=== PATIENT | female | born 1940 | race Caucasian/White ===

== ENCOUNTER 2020-10-03 14:56 | Inpatient (IN) | payer MEDICARE, SELFPAY ==
[2020-10-03] VITALS (16 sets, daily range): BP systolic 115–167; BP diastolic 49–72; PULSE 60–76; RESP 12–30; TEMP 36.7–37; O2SAT 94–100; BMI 33.2
--- NOTE | 2020-10-03 | DI.CT.S_ITS ---
PROCEDURE: CT CHEST WO CON INDICATIONS: Cough r/o PNA TECHNIQUE: Noncontrast 5 mm thick sections acquired from the pulmonary apices to the posterior costophrenic angles. 1 mm lung window, 5 mm thick coronal and sagittal and 7 mm axial MIP reformats were then acquired. For radiation dose reduction, the following was used: automated exposure control, adjustment of mA and/or kV according to patient size. COMPARISON: [facility], CT, CHEST W/O CONTRAST, 10/12/2010, 8:32. [facility], CT, CT KIDNEY URETER BLADDER (KUB), 10/03/2020, 17:22. FINDINGS: Image quality: Excellent. Lungs and pleura: No acute air space opacities. Very mild chronic interstitial fibrosis. 4 mm noncalcified subpleural pulmonary nodule, left upper lobe, image 82/3. This is not present on the previous study. No pleural effusions or pneumothorax. Central and peripheral airways are patent and normal in caliber. Mediastinum: Heart size is normal. No pericardial effusion. Advanced coronary artery calcifications. 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 Probable hemodynamically significant right renal artery stenosis. No mediastinal adenopathy by size criteria. Thoracic aorta and central pulmonary arteries are normal in size. Esophagus is normal in caliber. No hiatal hernia. Bones and chest wall: No suspicious bony lesions. No vertebral body compression fractures. No axillary or supraclavicular adenopathy by size criteria. Thyroid gland is somewhat heterogeneous . Abdomen: Polycystic kidneys IMPRESSION: 1. Very mild chronic interstitial pulmonary fibrosis. 2. 4 mm pulmonary nodule, left upper lobe. 3. Advanced coronary artery disease. 5. Polycystic kidneys. 6. 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 In the correct clinical setting, this can correlate with chronic mesenteric ischemia. 7. Probable hemodynamically significant calcified right renal artery stenosis. Comment: Consider noncontrast CT of the chest in 12 months to follow-up the pulmonary nodule. Dictated by: Janes Perkins M.D. on 10/03/2020 at 19:03 Approved by: Janes Perkins M.D. on 10/03/2020 at 19:10
--- NOTE | 2020-10-03 15:16 | ED.SEPSIS ---
HPI - Sepsis General Chief Complaint: Urogenital-Female Mode of arrival: EMS Source: patient Limitations: altered mental status Evaluation Sepsis Screen: No Definite Risk Sepsis Infection Criteria Present: Documented Infection Narrative: Patient is a 80-year-old female with history of recurrent UTIs hospitalized twice at [facility] in August. She was previously living independently in till she was hospitalized a through the 17 of August found to have Klebsiella UTI and sepsis with increased confusion. She was readmitted on August 23 for dehydration with elevated creatinine of 2.41 an indeterminate troponin of 0.079 and increased confusion. Her son states that her cognitive ability has significantly declined. She was admitted August 23 through the and [facility].. She does have a midline in on her left arm for IV antibiotics although do not see which antibiotic she is taking. They did outpatient blood work which showed leukocytosis of 15 and she was having increased confusion so she was sent to the ED for further evaluation she actually has no complaints but does not know ear days she does recognize that she is in a hospital she is able to follow some simple commands. I called the son and if received records from [facility] to receive much of the history. It appears she is on Ertapenem as an outpatient Review of Systems Review of Systems ROS Unobtainable: Unobtainable due to medical condition Respiratory Respiratory: Reports cough and Reports excessive phlegm production Gastrointestinal Gastrointestinal: Denies abdominal pain Genitourinary Genitourinary: Reports as per HPI Genitourinary: Reports as per HPI Neurologic Neurologic: Reports confusion Psychiatric Psychiatric: Reports confusion Patient History Medical History Acute UTI Diabetes Hyperlipidemia Hypertension Exam Initial Vital Signs Initial Vital Signs: Vital Signs Temperature 98.1 F 10/03/20 15:00 Pulse Rate 63 10/03/20 15:00 Respiratory Rate 12 10/03/20 15:00 Blood Pressure 155/54 H 10/03/20 15:00 Pulse Oximetry 98 10/03/20 15:00 GENERAL: Pleasantly confused elderly female no acute distress HEENT: Head atraumatic,EOMI, pupils reactive, CARDIOVASCULAR: Regular rate and rhythm without murmurs, rubs or gallops. RESPIRATORY: Breath sounds equal bilaterally, no wheezes rales or rhonchi. ABDOMEN: Soft, nontender. Normoactive bowel sounds all 4 quadrants. No guarding or rebound. EXTREMITIES: Normal range of motion, no clubbing or edema. Neurovascularly intact NEUROLOGICAL: Alert and oriented x2.Normal gait and speech. Lining Maker strength equal bilaterally moving both lower extremities SKIN: Warm, dry, no laceration, no petechiae, no rashes or lesions. Course Orders Ordered: ED Orders 10/03/20 15:02 Blood Culture Stat Complete Blood Count AUTO DIFF Stat Comprehensive Metabolic Panel Stat Lactate (Lactic Acid) Stat Procalcitonin Stat Troponin & CK Cardiac Panel Stat 10/03/20 15:10 Urinalysis and Microscopic Stat Urine Culture Stat 10/03/20 15:18 XR chest 1V Stat 10/03/20 15:54 COVID19 Stat 10/03/20 16:05 CT head/brain wo con Stat 10/03/20 17:19 CT kidney ureter bladder (KUB) Stat 10/03/20 17:29 Catheter Tip Culture Stat Sodium Chloride (Normal Saline 0.9%) 1,000 mls @ 200 mls/hr IV CONT CAROLEE Last Admin: 10/03/20 15:50 Dose: 200 mls/hr Documented by: CHRIS Discontinued Medications Vancomycin HCl (Vancomycin) 1,250 mg in 250 mls @ 250 mls/hr IV NOW ONE Stop: 10/03/20 17:54 Levofloxacin (Levaquin) 750 mg in 150 mls @ 100 mls/hr IV NOW ONE Stop: 10/03/20 18:25 Last Infusion: 10/03/20 18:25 Dose: 0 mls/hr Documented by: Admin: 10/03/20 17:05 Dose: 100 mls/hr Documented by: MONCHO Vital Signs Vital signs: Vital Signs - 8 hr 10/03/20 15:00 10/03/20 15:12 10/03/20 15:30 Temperature 98.1 F Pulse Rate 63 62 63 Respiratory Rate 12 17 30 H Blood Pressure 155/54 H Pulse Oximetry 98 99 99 10/03/20 15:31 10/03/20 16:00 10/03/20 16:01 Temperature Pulse Rate 64 67 68 Respiratory Rate 28 H 23 Blood Pressure 167/72 H 152/60 H Pulse Oximetry 99 99 99 10/03/20 16:30 10/03/20 16:56 10/03/20 17:00 Temperature Pulse Rate 60 65 64 Respiratory Rate 16 21 Blood Pressure 161/68 H Pulse Oximetry 98 100 99 10/03/20 17:01 10/03/20 17:39 10/03/20 17:42 Temperature Pulse Rate 64 69 67 Respiratory Rate 17 17 Blood Pressure 131/58 L 133/64 Pulse Oximetry 100 99 99 MDM - Sepsis Lab Data Attestation: I reviewed the patient's lab results. Result diagrams: 10/03/20 15:02 10/03/20 15:02 Labs: Lab Results 10/03/20 10/03/20 10/03/20 Range/Units 15:02 15:02 15:02 WBC 11.1 H (4.5-11.0) X10^3/uL RBC 3.53 L (4.0-5.2) X10^6/uL Hgb 10.7 L (12.0-16.0) g/dL Hct 32.3 L (36-46) % MCV 91.5 (80-100) fL MCH 30.3 (26-34) PG MCHC 33.1 (30-36) % RDW 13.6 (11.6-14.8) % Plt Count 191 (150-400) X10^3/uL Neut % (Auto) 78.9 H (50-75) % Lymph % (Auto) 12.6 L (25-40) % [place]gett % (Auto) 6.5 (3-14) % Eos % (Auto) 1.5 L (2-4) % Baso % (Auto) 0.5 (0-2) % Neut # (Auto) 8800 H (8643-0683) /uL Lymph # (Auto) 1400 (1396-4952) /uL Daggett # (Auto) 700 (0-900) /uL Eos # (Auto) 200 (0-450) /uL Baso # (Auto) 100 (0-100) /uL Sodium 139 (137-145) mmol/L Potassium 4.6 (3.4-5.1) mmol/L Chloride 106 (98-107) mmol/L Carbon Dioxide 30 (22-32) mmol/L BUN 61 H (7-17) mg/dL Creatinine 1.87 H (0.52-1.04) mg/dL Estimated GFR 25.8 L (>60) mL/min BUN/Creatinine Ratio 32.6 H (6-22) Glucose 100 (80-110) mg/dL Lactate (0.7-2.1) mmol/L Calcium 9.6 (8.4-10.2) mg/dL Total Bilirubin 0.5 (0.2-1.3) mg/dL AST 25 (14-36) IU/L ALT 10 (<35) IU/L Alkaline Phosphatase 73 (38-126) U/L Total Creatine Kinase (30-135) U/L CK-MB (CK-2) CK-MB (CK-2) Rel Index Troponin I (0.01-0.034) ng/mL Total Protein 7.2 (6.3-8.2) g/dL Albumin 3.9 (3.5-5.0) g/dL Globulin 3.3 (1.7-4.1) g/dL Albumin/Globulin Ratio 1.2 (1.0-2.8) Procalcitonin 3.96 H (<0.5) ng/mL Urine Color Urine Appearance Urine pH (4.5-8.0) Ur Specific [place] (1.000-1.035) Urine Protein (Negative) Urine Glucose (UA) (Negative) g/dL Urine Ketones (NEGATIVE) Urine Occult Blood (Negative) Urine Nitrate (Negative) Urine Bilirubin (NEGATIVE) Urine Urobilinogen (0.2) E.U./dL Ur Leukocyte Esterase (NEGATIVE) Urine RBC (0-5/HPF) Urine WBC (0-5/HPF) Urine Bacteria (None) Ur Culture Indicated? COVID-19 PCR (Negative) 10/03/20 10/03/20 10/03/20 Range/Units 15:02 15:02 15:10 WBC (4.5-11.0) X10^3/uL RBC (4.0-5.2) X10^6/uL Hgb (12.0-16.0) g/dL Hct (36-46) % MCV (80-100) fL MCH (26-34) PG MCHC (30-36) % RDW (11.6-14.8) % Plt Count (150-400) X10^3/uL Neut % (Auto) (50-75) % Lymph % (Auto) (25-40) % Daggett % (Auto) (3-14) % Eos % (Auto) (2-4) % Baso % (Auto) (0-2) % Neut # (Auto) (4741-7179) /uL Lymph # (Auto) (5496-9019) /uL Daggett # (Auto) (0-900) /uL Eos # (Auto) (0-450) /uL Baso # (Auto) (0-100) /uL Sodium (137-145) mmol/L Potassium (3.4-5.1) mmol/L Chloride (98-107) mmol/L Carbon Dioxide (22-32) mmol/L BUN (7-17) mg/dL Creatinine (0.52-1.04) mg/dL Estimated GFR (>60) mL/min BUN/Creatinine Ratio (6-22) Glucose (80-110) mg/dL Lactate 0.6 L (0.7-2.1) mmol/L Calcium (8.4-10.2) mg/dL Total Bilirubin (0.2-1.3) mg/dL AST (14-36) IU/L ALT (<35) IU/L Alkaline Phosphatase (38-126) U/L Total Creatine Kinase 57 (30-135) U/L CK-MB (CK-2) TNP CK-MB (CK-2) Rel Index TNP Troponin I 0.036 H (0.01-0.034) ng/mL Total Protein (6.3-8.2) g/dL Albumin (3.5-5.0) g/dL Globulin (1.7-4.1) g/dL Albumin/Globulin Ratio (1.0-2.8) Procalcitonin (<0.5) ng/mL Urine Color Yellow Urine Appearance Clear Urine pH 5.5 (4.5-8.0) Ur Specific [place] 1.015 (1.000-1.035) Urine Protein Negative (Negative) Urine Glucose (UA) Negative (Negative) g/dL Urine Ketones Negative (NEGATIVE) Urine Occult Blood Trace-lysed (Negative) Urine Nitrate Negative (Negative) Urine Bilirubin Negative (NEGATIVE) Urine Urobilinogen 0.2 (0.2) E.U./dL Ur Leukocyte Esterase 1+ H (NEGATIVE) Urine RBC None seen (0-5/HPF) Urine WBC 1-5/hpf (0-5/HPF) Urine Bacteria None seen (None) Ur Culture Indicated? Specimen cultured COVID-19 PCR (Negative) 10/03/20 Range/Units 15:54 WBC (4.5-11.0) X10^3/uL RBC (4.0-5.2) X10^6/uL Hgb (12.0-16.0) g/dL Hct (36-46) % MCV (80-100) fL MCH (26-34) PG MCHC (30-36) % RDW (11.6-14.8) % Plt Count (150-400) X10^3/uL Neut % (Auto) (50-75) % Lymph % (Auto) (25-40) % Daggett % (Auto) (3-14) % Eos % (Auto) (2-4) % Baso % (Auto) (0-2) % Neut # (Auto) (2830-2179) /uL Lymph # (Auto) (5140-0342) /uL Daggett # (Auto) (0-900) /uL Eos # (Auto) (0-450) /uL Baso # (Auto) (0-100) /uL Sodium (137-145) mmol/L Potassium (3.4-5.1) mmol/L Chloride (98-107) mmol/L Carbon Dioxide (22-32) mmol/L BUN (7-17) mg/dL Creatinine (0.52-1.04) mg/dL Estimated GFR (>60) mL/min BUN/Creatinine Ratio (6-22) Glucose (80-110) mg/dL Lactate (0.7-2.1) mmol/L Calcium (8.4-10.2) mg/dL Total Bilirubin (0.2-1.3) mg/dL AST (14-36) IU/L ALT (<35) IU/L Alkaline Phosphatase (38-126) U/L Total Creatine Kinase (30-135) U/L CK-MB (CK-2) CK-MB (CK-2) Rel Index Troponin I (0.01-0.034) ng/mL Total Protein (6.3-8.2) g/dL Albumin (3.5-5.0) g/dL Globulin (1.7-4.1) g/dL Albumin/Globulin Ratio (1.0-2.8) Procalcitonin (<0.5) ng/mL Urine Color Urine Appearance Urine pH (4.5-8.0) Ur Specific [place] (1.000-1.035) Urine Protein (Negative) Urine Glucose (UA) (Negative) g/dL Urine Ketones (NEGATIVE) Urine Occult Blood (Negative) Urine Nitrate (Negative) Urine Bilirubin (NEGATIVE) Urine Urobilinogen (0.2) E.U./dL Ur Leukocyte Esterase (NEGATIVE) Urine RBC (0-5/HPF) Urine WBC (0-5/HPF) Urine Bacteria (None) Ur Culture Indicated? COVID-19 PCR Negative (Negative) Imaging Data CT scan - head: Radiologist's Impression: PROCEDURE: CT HEAD/BRAIN WO CON INDICATIONS: confusion TECHNIQUE: Noncontrast 4.5 mm thick angled axial sections acquired from the foramen magnum to the vertex, with coronal and sagittal reformats. For radiation dose reduction, the following was used: automated exposure control, adjustment of mA and/or kV according to patient size. COMPARISON: [facility], CT, BRAIN W/O CONTRAST, 10/12/2010, 8:30. FINDINGS: Image quality: Excellent. CSF spaces: Basal cisterns are patent. No extra-axial fluid collections. The ventricles are symmetric in size and shape. Brain: No intracranial bleeds or masses. There is cerebral volume loss for age, with resultant ventricular and sulcal prominence. There are periventricular and deep white matter chronic small vessel ischemic changes. There is intracranial internal carotid artery atherosclerosis, as well as extensive vertebral basilar calcification. Skull and face: Calvarium and visualized facial bones appear intact, without suspicious lesions. Sinuses: Visualized sinuses and mastoids are clear. IMPRESSION: 1. Age related volume loss and age-appropriate small vessel ischemic change. 2. No evidence acute stroke, hemorrhage, or mass. Dictated by: Janes Perkins M.D. on 10/03/2020 at 16:41 Approved by: Janes Perkins M.D. on 10/03/2020 at 16:42 Chest x-ray: Radiologist's Impression: Increased opacity at the left lung base may represent pneumonia in the correct clinical setting. Given low lung volumes this may be in part atelectasis. CT scan - abdomen/pelvis: Radiologist's Impression: PROCEDURE: CT KIDNEY URETER BLADDER (KUB) INDICATIONS: renal failure with infection TECHNIQUE: Noncontrast 5 mm thick sections acquired from the diaphragms to the symphysis. 5 mm thick coronal and sagittal reformats were then performed. For radiation dose reduction, the following was used: automated exposure control, adjustment of mA and/or kV according to patient size. COMPARISON: None. FINDINGS: Image quality: Excellent. Lung bases: Mild basilar atelectasis. No focal consolidation, pneumothorax, or pleural effusion. Heart size is within normal limits. Dense mitral calcifications. Aortic calcifications. No pericardial effusion. Very small hiatal hernia. Urinary system: There are bilateral innumerable cysts noted throughout both kidneys. No hydronephrosis. Calcifications along the ureters bilaterally likely represent vascular calcifications. Both ureters appear non-dilated throughout their expected courses. Bladder wall thickness is normal; no calcified bladder stones. Other solid organs: Liver is normal in size. Gallbladder is unremarkable. Pancreas is normal in contours. Spleen is normal in size. No adrenal nodules. Peritoneum and bowel: Unenhanced bowel loops demonstrate normal wall thickness and caliber. No free fluid or air. Scattered left colonic diverticula without evidence of diverticulitis. There is diffuse calcifications throughout the aorta and branch vessels without evidence of aneurysm. Nodes and vessels: No retroperitoneal or mesenteric adenopathy by size criteria. Aorta and inferior vena cava are normal in caliber. Abdominal wall: Small fat containing periumbilical hernia. Pelvis: No free pelvic fluid. No inguinal hernias or adenopathy. Bones: No suspicious bony lesions. No vertebral body compression fractures. IMPRESSION: Findings consistent with polycystic kidney disease. No evidence of hydronephrosis or obstructive uropathy. Diverticulosis without evidence of diverticulitis. Dictated by: Smooth Paul D.O. on 10/03/2020 at 17 [facility] Narrative Medical decision making narrative: Patient's WBC here is 11,000 does have elevated procalcitonin no obvious sign of infection at this time. BUN and creatinine are elevated. 1715 Dr[address] Navas request ct kub, she will consult infectious disease. I have been in contact with the son multiple times. He will come visit her tomorrow. Discharge Plan Departure Patient Disposition: Admitted as Observation Clinical Impression: Acute metabolic encephalopathy, Acute dehydration Admit Date/Time: 10/03/20 18:05 Admit Provider: Nadeen Navas
--- NOTE | 2020-10-03 15:18 | DI.RAD.S_ITS ---
PROCEDURE: XR CHEST 1V INDICATIONS: fever TECHNIQUE: One view of the chest was acquired. COMPARISON: [facility], CR, CHEST 2VW, 12/07/2014, 21:08. [facility], CR, XR CHEST 1 VIEW, 05/05/2019, 17:19. [facility], CR, XR CHEST 1 VIEW, 08/23/2020, 12:20. [facility], CR, XR CHEST 1 VIEW, 08/24/2020, 5:11. FINDINGS: Surgical changes and devices: None. Lungs and pleura: The lungs are hypoinflated causing prominence of the bronchovascular markings. Increased opacity at the left lung base. No pneumothorax or pleural effusion. Mediastinum: Heart size is within normal limits. The descending aorta is tortuous in its course. Bones and chest wall: Degenerative changes of the spine with mild dextrocurvature.. No acute osseous abnormality. Surgical clips in the right upper quadrant. IMPRESSION: Increased opacity at the left lung base may represent pneumonia in the correct clinical setting. Given low lung volumes this may be in part atelectasis. Dictated by: Smooth Paul D.O. on 10/03/2020 at 14:52 Approved by: Smooth Paul D.O. on 10/03/2020 at 14:59
[2020-10-03 15:45] LABS: Add Manual Diff / Slide Review NO; Basophils Absolute Auto 100 /uL (0-100); Basophils Percent Auto 0.5 % (0-2); Eosinophils Absolute Auto 200 /uL (0-450); Eosinophils Percent Auto 1.5 % (2-4); Hematocrit 32.3 % (36-46); Hemoglobin 10.7 g/dL (12.0-16.0); Lymphocytes Absolute Auto 1400 /uL (1100-4500); Lymphocytes Percent Auto 12.6 % (25-40); Mean Corpuscular HGB Conc 33.1 % (30-36); Mean Corpuscular Hemoglobin 30.3 PG (26-34); Mean Corpuscular Volume 91.5 fL (80-100); Monocytes Absolute Auto 700 /uL (0-900); Monocytes Percent Auto 6.5 % (3-14); Neutrophils Absolute Auto 8800 /uL (1500-7000); Neutrophils Percent Auto 78.9 % (50-75); Platelet Count 191 X10^3/uL (150-400); Red Blood Cell Count 3.53 X10^6/uL (4.0-5.2); Red Cell Distribution Width 13.6 % (11.6-14.8); White Blood Cell Count 11.1 X10^3/uL (4.5-11.0)
[2020-10-03 15:45] LABS: Bacteria Urine None Seen; RBC Urine None Seen (0-5/HPF)
[2020-10-03 15:46] LABS: Alanine Aminotransferase 10 IU/L (<35); Albumin 3.9 g/dL (3.5-5.0); Albumin Globulin Ratio 1.2 (1.0-2.8); Alkaline Phosphatase 73 U/L (38-126); Aspartate Aminotransferase 25 IU/L (14-36); BUN Creatinine Ratio 32.6 (6-22); Bilirubin Total 0.5 mg/dL (0.2-1.3); Blood Urea Nitrogen 61 mg/dL (7-17); Calcium 9.6 mg/dL (8.4-10.2); Carbon Dioxide 30 mmol/L (22-32); Chloride 106 mmol/L (98-107); Estimated Glomerular Filt Rate 25.8 mL/min (>60); Globulin 3.3 g/dL (1.7-4.1); Glucose 100 mg/dL (80-110); HEMOLYSIS < 15 (0-50); Potassium 4.6 mmol/L (3.4-5.1); Sodium 139 mmol/L (137-145); Total Protein 7.2 g/dL (6.3-8.2)
[2020-10-03 15:47] LABS: Lactate (Lactic Acid) 0.6 mmol/L (0.7-2.1)
[2020-10-03] MEDS: SODIUM CHLORIDE 0.9% 1,000 ML 200 ML IV (15:50)
[2020-10-03 16:05] LABS: Bilirubin Urine UA NEGATIVE (NEGATIVE); Color Urine UA YELLOW; Glucose Urine UA NEGATIVE (Negative); Ketones Urine UA NEGATIVE (NEGATIVE); Leukocyte Esterase Urine UA 1+ (NEGATIVE); Nitrite Urine UA NEGATIVE (Negative); Occult Blood Urine UA TRACE-LYSED (Negative); Protein Urine UA NEGATIVE (Negative); Specific Gravity Urine UA 1.015 (1.000-1.035); Urobilinogen Urine UA 0.2 E.U./dL (0.2)
--- NOTE | 2020-10-03 16:05 | DI.CT.S_ITS ---
PROCEDURE: CT HEAD/BRAIN WO CON INDICATIONS: confusion TECHNIQUE: Noncontrast 4.5 mm thick angled axial sections acquired from the foramen magnum to the vertex, with coronal and sagittal reformats. For radiation dose reduction, the following was used: automated exposure control, adjustment of mA and/or kV according to patient size. COMPARISON: [facility], CT, BRAIN W/O CONTRAST, 10/12/2010, 8:30. FINDINGS: Image quality: Excellent. CSF spaces: Basal cisterns are patent. No extra-axial fluid collections. The ventricles are symmetric in size and shape. Brain: No intracranial bleeds or masses. There is cerebral volume loss for age, with resultant ventricular and sulcal prominence. There are periventricular and deep white matter chronic small vessel ischemic changes. There is intracranial internal carotid artery atherosclerosis, as well as extensive vertebral basilar calcification. Skull and face: Calvarium and visualized facial bones appear intact, without suspicious lesions. Sinuses: Visualized sinuses and mastoids are clear. IMPRESSION: 1. Age related volume loss and age-appropriate small vessel ischemic change. 2. No evidence acute stroke, hemorrhage, or mass. Dictated by: Janes Perkins M.D. on 10/03/2020 at 16:41 Approved by: Janes Perkins M.D. on 10/03/2020 at 16:42
[2020-10-03 16:10] LABS: pH Urine UA 5.5 (4.5-8.0)
[2020-10-03 16:11] LABS: Appearance Urine UA Clear
[2020-10-03 16:14] LABS: COVID19 -Nasal RAPID Negative (Negative)
[2020-10-03 16:15] LABS: Culture Indicated Urine Specimen Cultured; WBC Urine 1-5/HPF (0-5/HPF)
[2020-10-03 16:18] LABS: Procalcitonin 3.96 ng/mL (<0.5)
[2020-10-03 16:36] LABS: Creatine Kinase 57 U/L (30-135)
[2020-10-03 16:50] LABS: Troponin I 0.036 ng/mL (0.01-0.034)
[2020-10-03] MEDS: levoFLOXacin 750 MG/150 ML PIGGYBACK 100 MG IV (17:05)
--- NOTE | 2020-10-03 17:19 | DI.CT.S_ITS ---
PROCEDURE: CT KIDNEY URETER BLADDER (KUB) INDICATIONS: renal failure with infection TECHNIQUE: Noncontrast 5 mm thick sections acquired from the diaphragms to the symphysis. 5 mm thick coronal and sagittal reformats were then performed. For radiation dose reduction, the following was used: automated exposure control, adjustment of mA and/or kV according to patient size. COMPARISON: None. FINDINGS: Image quality: Excellent. Lung bases: Mild basilar atelectasis. No focal consolidation, pneumothorax, or pleural effusion. Heart size is within normal limits. Dense mitral calcifications. Aortic calcifications. No pericardial effusion. Very small hiatal hernia. Urinary system: There are bilateral innumerable cysts noted throughout both kidneys. No hydronephrosis. Calcifications along the ureters bilaterally likely represent vascular calcifications. Both ureters appear non-dilated throughout their expected courses. Bladder wall thickness is normal; no calcified bladder stones. Other solid organs: Liver is normal in size. Gallbladder is unremarkable. Pancreas is normal in contours. Spleen is normal in size. No adrenal nodules. Peritoneum and bowel: Unenhanced bowel loops demonstrate normal wall thickness and caliber. No free fluid or air. Scattered left colonic diverticula without evidence of diverticulitis. There is diffuse calcifications throughout the aorta and branch vessels without evidence of aneurysm. Nodes and vessels: No retroperitoneal or mesenteric adenopathy by size criteria. Aorta and inferior vena cava are normal in caliber. Abdominal wall: Small fat containing periumbilical hernia. Pelvis: No free pelvic fluid. No inguinal hernias or adenopathy. Bones: No suspicious bony lesions. No vertebral body compression fractures. IMPRESSION: Findings consistent with polycystic kidney disease. No evidence of hydronephrosis or obstructive uropathy. Diverticulosis without evidence of diverticulitis. Dictated by: Smooth Paul D.O. on 10/03/2020 at 17:03 Approved by: Smooth Paul D.O. on 10/03/2020 at 17:25
[2020-10-03] MEDS: VANCOMYCIN 1,250 MG/250 ML PIGGYBACK 250 MG IV (18:54)
--- NOTE | 2020-10-03 21:10 | P.HP_ITS ---
History of Present Illness History of Present Illness Date Patient Seen: 10/03/20 Time Patient Seen: 21:10 Chief complaint: UTI not getting better Narrative: Patient is an 80-year-old female who presented to Emergency Room following [facility] lab on 10/02/20 WBC 15 and increased confusion. In ER labs today: WBC 11.1, creatinine 1.8, procalcitonin 3.96, troponin 0.036. CXR in ER demonstrated increased opacity at the left lung base, UA was negative sent for culture, KUB- findings consistent with polycystic kidney disease. No evidence of hydronephrosis or obstructive uropathy. Diverticulosis without evidence of diverticulitis. Patient had most recently been in [facility] from 08/23 to 08/27/2020 for metabolic ence phalopathy, dehydration with elevated creatinine of 2.41 up from 1.29 on 08/11, an indeterminate troponin of 0.079 , acute kidney injury with worsening renal function GFR on 08/11 (39),08/23 (18). MRSA, ESBL (UTI), and altered mental status. And prior to that in [facility] from 08/11-08/17/2020 for Klebsiella UTI sepsis. had been residing at [facility], following the August 23- 2019 hospitalization was moved to [facility]. At [facility] patient had a PICC line placed and received Ertapenem. She presented to emergency room today with continued worsening confusion, on ER visit 08/23 her son reported that her memory loss was only 2-weeks-old at that time, Dr. Crowe noted references to a baseline cognitive dysfunction in prior chart. Upon exam patient is remarkably confused, she is orientated to her name and that she is in the hospital but stated the year was 1860, and was easily distracted was unable to perform in MOCA. And due to patient's confusion was unable to assist in family medical history, patient medical history or ROS. Patient has a medical history of type 2 diabetes insulin dependent, chronic kidney disease stage 4,essential hypertension, hyperlipidemia, anemia, coronary artery disease, unspecified dementia, and obesity Patient History Medical History (Updated 10/03/20 @ 22:43 by KATRINA Barlow-RAMESH) Acute UTI Anemia CKD (chronic kidney disease) stage 4, GFR 15-29 ml/min Diabetes Diabetes type 2, controlled Hyperlipidemia Hypertension Insulin dependent diabetes mellitus Obesity (BMI 30.0-34.9) Pressure ulcer of right lower extremity Pressure ulcer of sacral region Unspecified dementia without behavioral disturbance Family & Social History Family History Brother No problems noted. Brother No problems noted. Social History: Prior Living Arrangements Skilled Nurse Facility Safety & Behavioral: Feels Safe in Current Yes Environment Been Physically Hurt or No Threatened By a Person Suicidal Ideation Description None Suicide Plan Description No Plan Meds Home Medications and Allergies Home Medications Medication Instructions Recorded Confirmed Type Lactobacillus acidophilus 10/03/20 History [Acidophilus] aspirin 81 mg PO DAILY 10/03/20 10/03/20 History cholecalciferol (vitamin D3) 50 mcg PO DAILY 10/03/20 10/03/20 History [Vitamin D3] colchicine 0.6 mg PO DAILY PRN 10/03/20 10/03/20 History cranberry fruit [cranberry] 900 mg PO DAILY 10/03/20 10/03/20 History ertapenem 1 g IM DAILY 10/03/20 10/03/20 History ferrous sulfate 325 mg PO DAILY 10/03/20 10/03/20 History furosemide 20 mg PO DAILY 10/03/20 10/03/20 History glipizide 5 mg PO BID 10/03/20 10/03/20 History glipizide 10 mg PO BID 10/03/20 10/03/20 History insulin glargine 25 unit SUBCUT QPM 10/03/20 10/03/20 History lisinopril 20 mg PO DAILY 10/03/20 10/03/20 History lovastatin 80 mg PO QPM 10/03/20 10/03/20 History metoprolol tartrate 50 mg PO BID 10/03/20 10/03/20 History multivitamin [Daily Multivitamin] 1 tab PO DAILY 10/03/20 10/03/20 History nystatin 1 applic TOPICAL QID 10/03/20 10/03/20 History polyvinyl alcohol [Artificial 1 drp OPHTHALMIC (EYE) Q6H 10/03/20 10/03/20 History Tears (polyvin alc)] Allergies Allergy/AdvReac Type Severity Reaction Status Date / Time allopurinol Allergy Rash Verified 10/03/20 20:05 gabapentin Allergy Verified 10/03/20 20:08 Penicillins Allergy Hives Verified 10/03/20 20:05 oxycodone AdvReac Drowsy Verified 10/03/20 20:05 Review of Systems Review of Systems ROS: Yes unobtainable due to mental condition (Unspecified dementia without behavioral disturbance) Exam Vital Signs (past 8 hours): - 10/03/20 15:00 10/03/20 15:12 10/03/20 15:30 Temperature 98.1 F Pulse Rate 63 62 63 Respiratory Rate 12 17 30 H Blood Pressure 155/54 H Pulse Oximetry 98 99 99 10/03/20 15:31 10/03/20 16:00 10/03/20 16:01 Temperature Pulse Rate 64 67 68 Respiratory Rate 28 H 23 Blood Pressure 167/72 H 152/60 H Pulse Oximetry 99 99 99 10/03/20 16:30 10/03/20 16:56 10/03/20 17:00 Temperature Pulse Rate 60 65 64 Respiratory Rate 16 21 Blood Pressure 161/68 H Pulse Oximetry 98 100 99 10/03/20 17:01 10/03/20 17:39 10/03/20 17:42 Temperature Pulse Rate 64 69 67 Respiratory Rate 17 17 Blood Pressure 131/58 L 133/64 Pulse Oximetry 100 99 99 10/03/20 18:00 10/03/20 18:30 Temperature Pulse Rate 76 74 Respiratory Rate 27 H 27 H Blood Pressure 155/67 H 157/69 H Pulse Oximetry 100 100 Oxygen Delivery Method Room Air Narrative Exam Narrative: GENERAL: Pleasantly confused elderly female, being repositioned in bed, Johnson catheter in place, orientated to person, and hospital location, no acute distress HEENT: Head atraumatic,EOMI, pupils reactive, CARDIOVASCULAR: Regular rate and rhythm without murmurs, rubs or gallops. RESPIRATORY: Breath sounds equal bilaterally, no wheezes rales or rhonchi. ABDOMEN: Soft, mildly distended, nontender. No organomegaly, Hyperactive bowel sounds all 4 quadrants. No guarding or rebound. No CVA tenderness. Johnson catheter present and draining. EXTREMITIES: Normal range of motion, no clubbing or edema. sacral pressure ulcer well-healed, dressing to right lower leg stage II pressure ulcer. No signs of streaking erythema warmth or pain to site. Pulses present in all extremities and sensation in tact. NEUROLOGICAL: Alert and orientated to person, and that she is hospitalized. Year recalled 1860, patient unable to follow directions, when asked to take a deep breath in out patient held her breath. Education Intern strength equal bilaterally moving both lower extremities. SKIN: Warm, dry, no laceration, no petechiae, no rashes or lesions. Objective Labs Result Diagrams: 10/03/20 15:02 10/03/20 15:02 Labs: Laboratory Results - last 24 hr 10/03/20 10/03/20 10/03/20 15:02 15:02 15:02 WBC 11.1 H RBC 3.53 L Hgb 10.7 L Hct 32.3 L MCV 91.5 MCH 30.3 MCHC 33.1 RDW 13.6 Plt Count 191 Neut % (Auto) 78.9 H Lymph % (Auto) 12.6 L Traill % (Auto) 6.5 Eos % (Auto) 1.5 L Baso % (Auto) 0.5 Neut # (Auto) 8800 H Lymph # (Auto) 1400 Traill # (Auto) 700 Eos # (Auto) 200 Baso # (Auto) 100 Sodium 139 Potassium 4.6 Chloride 106 Carbon Dioxide 30 BUN 61 H Creatinine 1.87 H Estimated GFR 25.8 L BUN/Creatinine Ratio 32.6 H Glucose 100 Lactate Calcium 9.6 Total Bilirubin 0.5 AST 25 ALT 10 Alkaline Phosphatase 73 Total Creatine Kinase CK-MB (CK-2) CK-MB (CK-2) Rel Index Troponin I Total Protein 7.2 Albumin 3.9 Globulin 3.3 Albumin/Globulin Ratio 1.2 Procalcitonin 3.96 H Urine Color Urine Appearance Urine pH Ur Specific [place] Urine Protein Urine Glucose (UA) Urine Ketones Urine Occult Blood Urine Nitrate Urine Bilirubin Urine Urobilinogen Ur Leukocyte Esterase Urine RBC Urine WBC Urine Bacteria Ur Culture Indicated? COVID-19 PCR 10/03/20 10/03/20 10/03/20 15:02 15:02 15:10 WBC RBC Hgb Hct MCV MCH MCHC RDW Plt Count Neut % (Auto) Lymph % (Auto) Traill % (Auto) Eos % (Auto) Baso % (Auto) Neut # (Auto) Lymph # (Auto) Traill # (Auto) Eos # (Auto) Baso # (Auto) Sodium Potassium Chloride Carbon Dioxide BUN Creatinine Estimated GFR BUN/Creatinine Ratio Glucose Lactate 0.6 L Calcium Total Bilirubin AST ALT Alkaline Phosphatase Total Creatine Kinase 57 CK-MB (CK-2) TNP CK-MB (CK-2) Rel Index TNP Troponin I 0.036 H Total Protein Albumin Globulin Albumin/Globulin Ratio Procalcitonin Urine Color Yellow Urine Appearance Clear Urine pH 5.5 Ur Specific [place] 1.015 Urine Protein Negative Urine Glucose (UA) Negative Urine Ketones Negative Urine Occult Blood Trace-lysed Urine Nitrate Negative Urine Bilirubin Negative Urine Urobilinogen 0.2 Ur Leukocyte Esterase 1+ H Urine RBC None seen Urine WBC 1-5/hpf Urine Bacteria None seen Ur Culture Indicated? Specimen cultured COVID-19 PCR 10/03/20 15:54 WBC RBC Hgb Hct MCV MCH MCHC RDW Plt Count Neut % (Auto) Lymph % (Auto) Traill % (Auto) Eos % (Auto) Baso % (Auto) Neut # (Auto) Lymph # (Auto) Traill # (Auto) Eos # (Auto) Baso # (Auto) Sodium Potassium Chloride Carbon Dioxide BUN Creatinine Estimated GFR BUN/Creatinine Ratio Glucose Lactate Calcium Total Bilirubin AST ALT Alkaline Phosphatase Total Creatine Kinase CK-MB (CK-2) CK-MB (CK-2) Rel Index Troponin I Total Protein Albumin Globulin Albumin/Globulin Ratio Procalcitonin Urine Color Urine Appearance Urine pH Ur Specific [place] Urine Protein Urine Glucose (UA) Urine Ketones Urine Occult Blood Urine Nitrate Urine Bilirubin Urine Urobilinogen Ur Leukocyte Esterase Urine RBC Urine WBC Urine Bacteria Ur Culture Indicated? COVID-19 PCR Negative Assessment & Plan Assessment & Plan narrative: 1. Metabolic encephalopathy, acute, present on admission, possibly related to dehydration versus UTI verses TAMI on CKD stage 4 -WBC 11.1, creatinine 1.8, procalcitonin 3.96, troponin 0.036. (previous t roponin from hospitalization August 23 to August 27, 2020 0.079) -repeat labs in a.m., BNP, CBC, blood cultures x2 pending -CT head: 1. Age related volume loss and age-appropriate small vessel ischemic change. No evidence acute stroke, hemorrhage, or mass. -CXR: demonstrated increased opacity at the left lung base. -UA: negative, culture pending -KUB: polycystic kidney disease. No evidence of hydronephrosis or obstructive uropathy. Diverticulosis without evidence of diverticulitis. Upon visualization of KUB images patient had noted bladder distension and a full bowel with fecal matter. Johnson catheter placed, bowel regimen ordered including suppository now, and due to patient's recent antibiotic history and infection with hospitalizations ordered C diff PCR. -HX of [facility] from 08/23 to 08/27/2020 for metabolic encephalopathy, dehydration with elevated creatinine of 2.41 up from 1.29 on 08/11, an indeterminate troponin of 0.079 , acute kidney injury with worsening renal function GFR on 08/11 (39),08/23 (18). MRSA, ESBL (UTI), and altered mental status. [facility] from 08/11-08/17/2020 for Klebsiella UTI sepsis. Personally reviewed patient's medical medical records from hospitalization on 08/23/2020 [facility] and urinary culture results from [facility]. -patient's PICC line was removed in the ER. Dr. snider consulted with [facility] Infectious Disease and it was recommended that Entapenem be stopped patient changed to meropenem : clinical reasoning due to patient's level of confusion- Entapenem may cause more confusion and that antibiotic treatment may no longer be required. Patient's last positive blood cultures x2 was positive on 08/11/2020, cultures were negative on 08/23. -Will start patient on meropenem 2 g q.8 hours to be given over 30 minutes, repeat labs (CBC, CMP, BNP, Mag) in the a.m. monitor and wait for blood and urine culture results, 48 hours evaluation determine if we will stop all antibiotics. Patient may have a longstanding diagnosis of dementia versus medication related confusion versus infection related confusion. -patient to continue with IV fluids normal saline 100 cc/hour, received NS 1000 cc in the emergency room -patient received Vancomycin 1,250 mg/Levaquin 750 mg in ER. 2. Diabetes mellitus type 2, insulin dependent, chronic, stable, present on admission -patient has type 2 diabetes puts her at higher risk for complications from infection and difficulty healing and requires greater acuity medical interventions. -complication of diabetes type 2 lower right leg pressure ulcer, recently resolved sacral pressure ulcer. -monitor blood sugars a.c. and HS, A1C in am -hold patient's p.o. medications -patient to continue her home Lantus, may need to reduce Lantus dosage. -glucose 100 upon admission -patient placed on carbohydrate diet -physical therapy consult 3. Acute kidney injury secondary to worsening chronic kidney disease stage 4, acute on chronic, present on admission -hydration normal saline 100 cc/hour reassess on 10/04 -repeat morning labs CBC CMP Mag BNP, procalcitonin, lactate -BUN 61, creatinine 1.87, GFR 25.8, BUN/creatinine ratio 32.6, lactate 0.6 procalcitonin 3.96. (GFR on 08/11 was 39, GFR on 08/23 was 18) -urine dip in ER was negative, urine culture pending -PICC line removed in ER Entrapenem stopped. Changed to meropenem 2 g IV q.8 hours over 30 minutes, blood cultures x2 pending will re-evaluate for antibiotic necessity based on culture results -likely secondary to dehydration pre-renal, will hold patient's home Lasix 20 mg daily. On 08/27/2020 [facility] patient's Lasix was decreased from 40mg-20mg. -creatinine clearance 15.51 per Cockcroft-Gault equation -Qsofa score of 1 Not high risk --Heparin 5,000 units twice daily for VTE prophylaxis 4. Unspecified dementia without behavioral disturbance, acute on chronic, present on admission -possible causes acute kidney injury vs Entrapenem vs infection. -patient's unspecified dementia puts her at higher risk for medical complications and recovery from infections, puts the patient at risk for fall further injury and impairs her ability to participate in her own care and hi nders medical management intervention. -no signs of a stroke, hemorrhage or mass on CT. -previous chart note demonstrates that her thought process has been improved with antibiotic therapy, will wait to determine if patient has change in mental status with IV hydration & antibiotics taking into consideration culture results. -recommended PCP follow-up for complete evaluation. -[place] coma score 14 5. Coronary artery disease, chronic, stable, present on admission -patient's blood pressure on admission was 157/69, once patient was on the floor her blood pressure was 115/55 will hold metoprolol tonight -Continue home medications starting tomorrow atorvastatin, metoprolol, lisinopril. -hold 81 mg aspirin -Heparin 5,000 units twice daily for VTE prophylaxis 6. Obesity BMI 30.6, acute on chronic, present on admission -patient has a much higher risk for medical or surgical complications due to her morbid obesity it increases the chances of poor outcomes and recovery from infections or surgery. Patient currently has a stage II pressure ulcer to lower right leg. -BMI on 08/11 (36.29), 08/23 (28.75), 10/03 (33.2) -dietary consult 7. Anemia, unspecified, acute on chronic, present on admission -RBC 3.53, hemoglobin 10.7, hematocrit 32.3 -patient to continue home medication ferrous sulfate 325 once daily and vitamin- D 8. Essential hypertension, acute on chronic, present on admission -patient's blood pressure on admission was 157/69, once patient was on the floor her blood pressure was 115/55 will hold meds tonight -Continue home medications starting tomorrow metoprolol, lisinopril. 9. Constipation, acute on chronic, present on admission -visualized gross amount of stool on KUB -bowel regimen started this evening with suppository Surrogate: Conner Reagan POLST: DNAR Patient was admitted to the hospital for increased white count, worsening confusion. Patient has 3 recent hospitalizations at [facility] in the past 2 months. Patient has been on IV antibiotic and oral therapies for positive blood, urine, and skin cultures. With a positive history of MRSA, ESBL, and Klebsiella UTI/sepsis. Patient's baseline cognitive function is undetermined at this time. These complications coupled with her comorbidities of hypertension, hyperlipidemia, chronic kidney disease stage 4, coronary artery disease and obesity with the patient a greater mortality and morbidity risk requiring a higher acuity of medical inpatient intervention and management management. Scores GCS [place]vale coma scale eye opening: Spontaneous Abhijit coma scale verbal response: Confused (Orientated to person and hospitalization) [place] coma scale motor response: Obey commands [place] coma scale total score: 14 Wells' Criteria for PE Clinical signs and symptoms of DVT: No PE is #1 Dx or equally likely: No Heart rate > 100: No Immobilization at least 3 days or surg in previous 4 weeks: Yes History of PE or DVT: No Hemoptysis: No Malignancy w/Treatment within 6 months or palliative: No Wells' PE Score total: 1.5
[2020-10-03] MEDS: SODIUM CHLORIDE 0.9% 1,000 ML 100 ML IV (21:25)
[2020-10-03] MEDS: SENNOSIDES 8.6 MG TABLET 17.2 MG PO (21:29)
[2020-10-03] MEDS: BISACODYL 10 MG SUPP PR (21:29)
[2020-10-03] MEDS: NYSTATIN POWDER 15GM 1 APPLIC TOP (21:29)
[2020-10-03] MEDS: DOCUSATE 100 MG CAPSULE PO (21:29)
[2020-10-04] VITALS (13 sets, daily range): BP systolic 106–160; BP diastolic 60–72; PULSE 76–102; RESP 14–22; TEMP 36.9–38.1; O2SAT 95–99
[2020-10-04] MEDS: MEROPENEM 1,000 MG in SODIUM CHLORIDE 0.9% 100 ML 200 ML IV (00:32)
[2020-10-04] MEDS: INSULIN GLARGINE 100 UNIT/ML 3ML PEN 25 UNIT SUBCUT (01:34)
--- NOTE | 2020-10-04 02:06 | PC.NURSE ---
pt was awake when this literary writer entered the room. pt was pleasant and alert and oriented to self only. Pt has difficulty finding the right words she wants to say. Pt had a bowel movement and color was black. This literary writer reported to hospitalist of the bowel movement, hospitalist wanted a guiaic. Guiaiac negative at this time and was informed pt takes ferrous sulfate at home. Pt blood sugar was 200 and hospitalist stated to go ahead and give lantus 25 units that was withheld in the previous shift. Will recheck blood sugar after two-three hours.
[2020-10-04] MEDS: ACETAMINOPHEN 325 MG TABLET 650 MG PO (04:04)
[2020-10-04 06:04] LABS: Add Manual Diff / Slide Review NO; Basophils Absolute Auto 100 /uL (0-100); Basophils Percent Auto 0.5 % (0-2); Eosinophils Absolute Auto 0 /uL (0-450); Eosinophils Percent Auto 0.2 % (2-4); Lymphocytes Absolute Auto 900 /uL (1100-4500); Lymphocytes Percent Auto 6.8 % (25-40); Mean Corpuscular HGB Conc 33.2 % (30-36); Mean Corpuscular Hemoglobin 30.5 PG (26-34); Mean Corpuscular Volume 91.7 fL (80-100); Monocytes Absolute Auto 500 /uL (0-900); Monocytes Percent Auto 3.9 % (3-14); Neutrophils Absolute Auto 11500 /uL (1500-7000); Neutrophils Percent Auto 88.6 % (50-75); Platelet Count 167 X10^3/uL (150-400); Red Blood Cell Count 3.27 X10^6/uL (4.0-5.2); Red Cell Distribution Width 13.9 % (11.6-14.8)
[2020-10-04 06:17] LABS: Alanine Aminotransferase 10 IU/L (<35); Albumin 3.3 g/dL (3.5-5.0); Albumin Globulin Ratio 1.1 (1.0-2.8); Alkaline Phosphatase 64 U/L (38-126); Aspartate Aminotransferase 21 IU/L (14-36); BUN Creatinine Ratio 28.4 (6-22); Bilirubin Total 0.8 mg/dL (0.2-1.3); Blood Urea Nitrogen 52 mg/dL (7-17); Calcium 8.9 mg/dL (8.4-10.2); Carbon Dioxide 23 mmol/L (22-32); Chloride 108 mmol/L (98-107); Estimated Glomerular Filt Rate 26.4 mL/min (>60); Globulin 3.1 g/dL (1.7-4.1); Glucose 226 mg/dL (80-110); HEMOLYSIS < 15 (0-50); Magnesium 1.9 mg/dL (1.6-2.3); Phosphorous 3.7 mg/dL (2.8-4.1); Potassium 4.4 mmol/L (3.4-5.1); Sodium 137 mmol/L (137-145); Total Protein 6.4 g/dL (6.3-8.2)
[2020-10-04 06:18] LABS: Lactate (Lactic Acid) 0.9 mmol/L (0.7-2.1)
[2020-10-04 06:25] LABS: NT-proBNP (BNP-Adult 18+) 1530 pg/mL (<450)
[2020-10-04 06:31] LABS: Hemoglobin A1C% w Est Avg Glu 5.9 % (4.0-6.0); Procalcitonin 2.57 ng/mL (<0.5)
[2020-10-04] MEDS: SODIUM CHLORIDE 0.9% 1,000 ML 100 ML IV ×2 (07:23→18:43)
[2020-10-04] MEDS: MEROPENEM 1 GM in SODIUM CHLORIDE 0.9% 100 ML 200 ML IV ×2 (08:19→20:46)
[2020-10-04] MEDS: lisinopriL 20 MG TABLET PO (08:20)
[2020-10-04] MEDS: CHOLECALCIFEROL (VITAMIN D3) 1,000 UNIT TABLET 1000 UNIT PO (08:21)
[2020-10-04] MEDS: METOPROLOL IR 50 MG TABLET PO ×2 (08:21→20:47)
[2020-10-04] MEDS: FERROUS SULFATE 325 MG TABLET PO (08:21)
[2020-10-04] MEDS: NYSTATIN POWDER 15GM 1 APPLIC TOP ×4 (08:21→20:47)
[2020-10-04] MEDS: DOCUSATE 100 MG CAPSULE PO ×2 (08:21→20:46)
[2020-10-04] MEDS: HEPARIN 5,000 UNIT/ML VIAL 5000 UNIT SUBCUT ×2 (08:21→20:46)
--- NOTE | 2020-10-04 10:44 | CM.DANOTE ---
DCP/Assessment: Reviewed chart. Patient is a 80yr old female admitted [facility] with [facility]. PCP listed is Jeanette Kirby. Primary payor is 1)Medicare 2)Self pay. Met with patient and son/Atif at bedside explained CM/SW role. Patient appears pleasantly confused at time of visit. Son reports that patient has been in/out of the hospital with UTI's for the last month. Previously patient at [facility]. Patient admitted from [facility]. Son hopes for patient to return to [facility] when medically stable. Spoke with Dr. Navas and she is requesting [employer]IVIL PROCESS SERVER obtain information pertaining to IV abx. Placed call to April and she confirms patient start date of 09-25 q day x14dys of eropenem, Dr. Navas updated. PT/OT evaluations ordered. Current plan is for patient to return to [facility] when medically stable. Patient will need to finish her IV abx course. Son reports that patient resides at [facility] at baseline. He hopes to get her back there once all treatment completed. P: [facility] when stable. ENRRIQUE Barreto Discharge Planning/Care Management CM Discharge Assessment Start: 10/04/20 10:38 Freq: Status: Active Protocol: Document 10/04/20 10:38 KJS (Rec: 10/04/20 10:44 KJS [id number]) Discharge Planning Assessment Assigned Director Mba ENRRIQUE Barreto Contact Information Atif Reagan (son) cell# [phone] Advance Directives? Yes Advance Directives on File Yes: POLST form in patient's chart History Provided By Patient,Family Member,Medical Record Prior Living Arrangements Skilled Nurse Facility Type of transporation used prior to Relies on Others admit Facility Name Admitted From: [facility] Willing to Return to Facility? Yes: Anticipate that patient will return to [facility] when medically stable. Independent with ADL's No: PT/OT evaluations pending. Is patient alert and oriented? No: Currently with confusion, alert and oriented x2. Caregiver for Another No Patient/Family Preference Detention Facility Barriers to Discharge No Discharge Plan Detention Facility Community Services Physical Therapy,Occupational Therapy Transportation Arrangement Facility to provide Referrals Initiated Detention Medicare Choice List Provided Yes SNF/HH Preference [facility] Contact Name/Phone April at [phone] Has Agency SNF been contacted Yes Whiteboard Updated in Patient Room with Yes name and ext. # of Director Mba Review Status In Process Next Review Type Continued Stay Review
[2020-10-04] MEDS: INSULIN ASPART 100 UNIT/ML INSULN PEN SUBCUT ×2 (11:52→17:12)
--- NOTE | 2020-10-04 12:13 | PM.PN.1 ---
Subjective Subjective Date Patient Seen: 10/04/20 Interval history: Tram Reagan is an 80-year-old female with a past medical history significant for CAD, PAD, hypertension, hyperlipidemia, diabetes mellitus type II, insulin using, CKD, and dementia who presented to ED from shelter facility with increasing confusion and leukocytosis on outpatient labs. The patient is resting in bed comfortably. She is alert oriented to person only. She is delirious and actively hallucinating both visual and auditory. Her son Atif is present at bedside. Discussed goals and plan of care including treatment of UTI and dehydration. Her son informs me that other than treating infection the patient does not want aggressive medical interventions pursued and her wishes are to be comfortable. Discussed CT findings and severe systemic atherosclerosis with stenosis of right renal artery, celiac and SMA artery and possibility for viscus infarction at anytime, as well as, appropriateness of hospice. Exam Vital Signs (past 8 hours): - 10/04/20 04:34 10/04/20 04:49 10/04/20 07:32 Temperature 100.4 F H 100.4 F H 99.5 F Pulse Rate 88 Respiratory Rate 15 Blood Pressure 124/62 Pulse Oximetry 95 10/04/20 08:20 10/04/20 11:24 Temperature 99.0 F Pulse Rate 98 H Respiratory Rate 16 Blood Pressure 124/62 160/72 H Pulse Oximetry 98 Oxygen Delivery Method Room Air Oxygen Flow Rate 0 Narrative Exam Narrative: General: Elderly female lying in bed and in no acute distress, alert and oriented to person only, delerious and actively hallucinating (visual and auditory). HEENT: Normocephalic, atraumatic. External ears without defect. Pupils equal, round, and reactive to light. Anicteric sclerae, moist conjunctivae, and no lid lag. Oropharynx free of erythema and cobble stoning with moist mucosa. Neck: Supple with full range of motion. No jugular venous distension. No lymphadenopathy or thyromegaly. Cardiovascular: Regular rate and rhythm without murmurs, rubs, or gallops appreciated. Pulmonary: Clear to auscultation bilaterally without crackles, wheezes, or rhonchi. Normal respiratory effort with no use of accessory muscles. Abdomen: Soft, bowel sounds present, nontender, nondistended. No hepatosplenomegaly or masses appreciated. Extremities: No clubbing, cyanosis, or edema. Bilateral lower extremities with stasis dermatitis and sclerosis of skin. Two 1 cm nonhealing venous stasis ulcers of distal right lower extremity on meidal and one lateral. Neurological: Cranial nerves grossly intact. Psychiatric: Alert and oriented to person only. Delerious with both auditory and visual hallucinations. Chronic mild to moderate dementia at baseline with short and long-term memory impairment per son. Objective Labs Result Diagrams: 10/06/20 04:41 10/06/20 04:41 Labs: Laboratory Results - last 24 hr 10/03/20 10/03/20 10/03/20 15:02 15:02 15:02 WBC 11.1 H RBC 3.53 L Hgb 10.7 L Hct 32.3 L MCV 91.5 MCH 30.3 MCHC 33.1 RDW 13.6 Plt Count 191 Neut % (Auto) 78.9 H Lymph % (Auto) 12.6 L [place] % (Auto) 6.5 Eos % (Auto) 1.5 L Baso % (Auto) 0.5 Neut # (Auto) 8800 H Lymph # (Auto) 1400 [place] # (Auto) 700 Eos # (Auto) 200 Baso # (Auto) 100 Sodium 139 Potassium 4.6 Chloride 106 Carbon Dioxide 30 BUN 61 H Creatinine 1.87 H Estimated GFR 25.8 L BUN/Creatinine Ratio 32.6 H Glucose 100 Hemoglobin A1c Lactate Calcium 9.6 Phosphorus Magnesium Total Bilirubin 0.5 AST 25 ALT 10 Alkaline Phosphatase 73 Total Creatine Kinase CK-MB (CK-2) CK-MB (CK-2) Rel Index Troponin I NT-Pro-B Natriuret Pep Total Protein 7.2 Albumin 3.9 Globulin 3.3 Albumin/Globulin Ratio 1.2 Procalcitonin 3.96 H Urine Color Urine Appearance Urine pH Ur Specific [place] Urine Protein Urine Glucose (UA) Urine Ketones Urine Occult Blood Urine Nitrate Urine Bilirubin Urine Urobilinogen Ur Leukocyte Esterase Urine RBC Urine WBC Urine Bacteria Ur Culture Indicated? COVID-19 PCR 10/03/20 10/03/20 10/03/20 15:02 15:02 15:10 WBC RBC Hgb Hct MCV MCH MCHC RDW Plt Count Neut % (Auto) Lymph % (Auto) [place] % (Auto) Eos % (Auto) Baso % (Auto) Neut # (Auto) Lymph # (Auto) [place] # (Auto) Eos # (Auto) Baso # (Auto) Sodium Potassium Chloride Carbon Dioxide BUN Creatinine Estimated GFR BUN/Creatinine Ratio Glucose Hemoglobin A1c Lactate 0.6 L Calcium Phosphorus Magnesium Total Bilirubin AST ALT Alkaline Phosphatase Total Creatine Kinase 57 CK-MB (CK-2) TNP CK-MB (CK-2) Rel Index TNP Troponin I 0.036 H NT-Pro-B Natriuret Pep Total Protein Albumin Globulin Albumin/Globulin Ratio Procalcitonin Urine Color Yellow Urine Appearance Clear Urine pH 5.5 Ur Specific [place] 1.015 Urine Protein Negative Urine Glucose (UA) Negative Urine Ketones Negative Urine Occult Blood Trace-lysed Urine Nitrate Negative Urine Bilirubin Negative Urine Urobilinogen 0.2 Ur Leukocyte Esterase 1+ H Urine RBC None seen Urine WBC 1-5/hpf Urine Bacteria None seen Ur Culture Indicated? Specimen cultured COVID-19 PCR 10/03/20 10/04/20 10/04/20 15:54 05:48 05:48 WBC 13.0 H RBC 3.27 L Hgb 10.0 L Hct 30.0 L MCV 91.7 MCH 30.5 MCHC 33.2 RDW 13.9 Plt Count 167 Neut % (Auto) 88.6 H Lymph % (Auto) 6.8 L [place] % (Auto) 3.9 Eos % (Auto) 0.2 L Baso % (Auto) 0.5 Neut # (Auto) 95931 H Lymph # (Auto) 900 L [place] # (Auto) 500 Eos # (Auto) 0 Baso # (Auto) 100 Sodium 137 Potassium 4.4 Chloride 108 H Carbon Dioxide 23 BUN 52 H Creatinine 1.83 H Estimated GFR 26.4 L BUN/Creatinine Ratio 28.4 H Glucose 226 H D Hemoglobin A1c Lactate Calcium 8.9 Phosphorus 3.7 Magnesium 1.9 Total Bilirubin 0.8 AST 21 ALT 10 Alkaline Phosphatase 64 Total Creatine Kinase CK-MB (CK-2) CK-MB (CK-2) Rel Index Troponin I NT-Pro-B Natriuret Pep 1530 H Total Protein 6.4 Albumin 3.3 L Globulin 3.1 Albumin/Globulin Ratio 1.1 Procalcitonin Urine Color Urine Appearance Urine pH Ur Specific [place] Urine Protein Urine Glucose (UA) Urine Ketones Urine Occult Blood Urine Nitrate Urine Bilirubin Urine Urobilinogen Ur Leukocyte Esterase Urine RBC Urine WBC Urine Bacteria Ur Culture Indicated? COVID-19 PCR Negative 10/04/20 10/04/20 10/04/20 05:48 05:48 05:48 WBC RBC Hgb Hct MCV MCH MCHC RDW Plt Count Neut % (Auto) Lymph % (Auto) [place] % (Auto) Eos % (Auto) Baso % (Auto) Neut # (Auto) Lymph # (Auto) [place] # (Auto) Eos # (Auto) Baso # (Auto) Sodium Potassium Chloride Carbon Dioxide BUN Creatinine Estimated GFR BUN/Creatinine Ratio Glucose Hemoglobin A1c 5.9 Lactate 0.9 Calcium Phosphorus Magnesium Total Bilirubin AST ALT Alkaline Phosphatase Total Creatine Kinase CK-MB (CK-2) CK-MB (CK-2) Rel Index Troponin I NT-Pro-B Natriuret Pep Total Protein Albumin Globulin Albumin/Globulin Ratio Procalcitonin 2.57 H Urine Color Urine Appearance Urine pH Ur Specific [place] Urine Protein Urine Glucose (UA) Urine Ketones Urine Occult Blood Urine Nitrate Urine Bilirubin Urine Urobilinogen Ur Leukocyte Esterase Urine RBC Urine WBC Urine Bacteria Ur Culture Indicated? COVID-19 PCR [facility] Medical History (Updated 10/03/20 @ 22:43 by K[facility] Acute UTI Anemia CKD (chronic kidney disease) stage 4, GFR 15-29 ml/min Diabetes Diabetes type 2, controlled Hyperlipidemia Hypertension Insulin dependent diabetes mellitus Obesity (BMI 30.0-34.9) Pressure ulcer of right lower extremity Pressure ulcer of sacral region Unspecified dementia without behavioral disturbance Family History (Updated 10/03/20 @ 22:46 by ARTURO Barlow) Brother No problems noted. Brother No problems noted. Social History household members: children Assessment & Plan Assessment & Plan narrative: Tram Reagan is an 80-year-old female with a past medical history significant for CAD, PAD, hypertension, hyperlipidemia, diabetes mellitus type II, insulin using, CKD, and dementia who presented to ED from shelter facility with increasing confusion and leukocytosis on outpatient labs. 1. ESBL Klebsiella UTI, present on admission. Active. -Patient was diagnosed outpatient with ESBL Klebsilella UTI by irine culture 09/22 and started treatment with ertapenem on 09/25 to complete 14 days total (completed 7 out of 14). Previous klebsiella UTI which was not ESBL on 08/11 at [facility]. -Patient presented with increasing confusion and elevated WBC and procalcitonin. Initial WBC 11.9 and procalictonin 3.96. WBC trended up to 13 and procalcitonin trending down now 2.57. Continue to monitor WBC and procalcitonin daily. -Repeat urine and blood cultures preliminarily have no growth. Picc line removed and tip cultured without growth. -Switched ertapenem to renally dosed meropenem 1 g every 12 hours as less propensity to cause confusion per ID. 2. Acute metabolic encephalopathy, in setting of dementia without behavioral disturbance, present on admission. Active. -Acute delerium from UTI, dehydration and etrapenem and treated as above and below. Concern for hypoglycemia with numerous oral antihyperglycemics and insulin which could precipitate confusion.Patient has chronic mild to moderate dementia at baseline. GCS 14. -CT brain without contrast did not demonstrate stroke, hemorrhage or mass. -Continue to reorient and redirect frequently. -Patient is acutely delerious with hallucinations (auditory and visual). Patients son and DPOA Atif Reagan would like infection and dehydration treated without aggressive medical interventions pursued and patient to be kept comfortable. Discussed CT findings and severe systemic atherosclerosis with stenosis of right renal artery, celiac and SMA artery and possibility for viscus infarction at anytime, as well as, appropriateness of hospice which he is open to. Started low dose seroquel 12.5 mg daily at bedtime. 3. TAMI secondary to UTI and dehydration, in setting of chronic polycystic kidney disease, unknown stage likely 3 or 4, present on admission. Active. -Initial creatinine 1.87 and BUN 61 with CrCl 15.5. Baseline creatinine unknown. Previous history of TAMI on 08/23 with hospitalization at [facility] in which creatinine was 2.41. Creatinine improved slightly with IV fluid hydration now 1.83 and may be close to baseline it is unclear. -CT KUB demonstrated polycystic kidney disease with no evidence of hydronephrosis or obstructive uropathy. Upon visualization of KUB images patient had noted significant bladder distension and Johnson catheter was placed with immediate 700 cc of UOP. -Avoid nephrotoxic agents and renally dose medications. Held lisinopril. Discontinued furosemide as patient is high risk of dehydration with dementia and this is second hospitalization in 1 month. -Continue IV fluids with NS at 100 mL/hr. -Continue to monitor creatinine daily. 4. Diabetes mellitus type 2, insulin using, chronic, present on admission. Stable. -Hemoglobin A1C 5.9% indicative of excellent glycemic control and in range of prediabetes. Concern for hypoglycemia with numerous oral antihyperglycemics and insulin which could precipitate confusion. -Held oral anti hyperglycemics. -Continue ACHS blood glucose checks and medium dose correctional scale insulin. -Continue home lantus 25 units at bedtime and may need to lower dose depending on BG trend. -Continue heart health/carbohydrate consitent diet. 5. Coronary artery disease and peripheral arterial disease, chronic, present on admission. Stable. -Patient has two chronic non-healing venous ulcers on right lower extremity which she has been followed by wound care. Continue nursing wound care with irrigation and wet to dry dressing change daily and as needed. 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 -Continue aspirin 81 mg daily, switched home lovastatin to atorvastatin 40 mg daily at bedtime as more effective and higher potency with less adverse effects, and metoprolol tartrate 50 mg twice daily. 6. Obesity, chronic, present on admission. Stable. -BMI 30.6. -Patient has a much higher risk for medical or surgical complications due to her morbid obesity it increases the chances of poor outcomes and recovery from infections or surgery. -Consulted dietitian we appreciate her time and recommendations. 7. Normocytic iron deficiency anemia, chronic, present on admission. Stable. -Initial hemoglobin 10.7. Hemoglobin trending down now 10.0 likely due to dilution from IV fluids. -Continue home ferrous sulfate 325 mg daily and vitamin-D 50 mcg daily. 8. Hypertension, chronic, present on admission. Stable. -Held lisinopril due to TAMI. Continue home metoprolol tartrate 50 mg twice daily. 9. Constipation, acute on chronic, present on admission -Patient has heavy stool burden on CT KUB -Continue bowel regimen with colace 100 mg twice daily, Miralax 17 g daily and as needed suppository for persitent constipation. Code status: DNR/DNI, surrogate decision maker designated as her son Atif Reagan VTE prophylaxis: SQ heparin Disposition: Patient likely to discharge to shelter facility for continued rehabilitation in 1-2 days once improvement in metabolic encephalopathy and TAMI with treatment of UTI and dehydration.
--- NOTE | 2020-10-04 13:01 | PT.IIE ---
Medical History (Last Updated 10/03/20 @ 22:43 by Winsome Green, [facility]) Acute UTI Anemia CKD (chronic kidney disease) stage 4, GFR 15-29 ml/min Diabetes Diabetes type 2, controlled Hyperlipidemia Hypertension Insulin dependent diabetes mellitus Obesity (BMI 30.0-34.9) Pressure ulcer of right lower extremity Pressure ulcer of sacral region Unspecified dementia without behavioral disturbance Physical Therapy Inpatient Evaluation/Re-Eval M1 PT/OT-IP Prior Functional Status Start: 10/04/20 12:38 Freq: NEEDED Status: Active Protocol: Document 10/04/20 12:38 [facility] (Rec: 10/04/20 13:01 [facility] [id number]) Medical Review Prior Functional Status Medical History Reviewed Yes Communication communication with MD at rounds prior to seeing patient today Prior Functional Level (Other details) pt resides at [facility] and was taken to the ER with due to increased confusion, She presents with an acute UTI, kidney injury and dehydration Social History Household Members children Living Arrangements Skilled Nurse Facility M2 PT-IP Current Condition Start: 10/04/20 12:38 Freq: NEEDED Status: Active Protocol: Document 10/04/20 12:38 [facility] (Rec: 10/04/20 13:01 [facility] [id number]) Physical Therapy Current Condition Current Condition Evaluation Date 10/04/20 Treatment Diagnosis UTI, increasing confusion, chronic kidney disease stage 4 Weight Bearing Status Weight Bearing Status Full Weight Bearing M3 PT-IP Subjective Start: 10/04/20 12:38 Freq: NEEDED Status: Active Protocol: Document 10/04/20 12:38 [facility] (Rec: 10/04/20 13:01 [facility] [id number]) Subjective Physical Therapy Visit Type Type Initial Evaluation Visit Start Time 12:00 Visit Stop Time 12:40 Total Visit Minutes 40 Physical Therapy Visit Comments Patient Comments Pt is confused and is not sure why she is here, she is able to state her name but that is it Therapy Pain Assessment Pain Present Pain Present Denied Pain M4 PT-IP Mobility and Gait Start: 10/04/20 12:38 Freq: NEEDED Status: Active Protocol: Document 10/04/20 12:38 [facility] (Rec: 10/04/20 13:01 [facility] [id number]) PT-Bed Mobility Assessment Rolling Type of Rolling Roll to Left Level of Assist Maximal Assistance Supine to Sit Supine to Sit Maximum Assistance Sit to Supine Sit to Supine Maximum Assistance Scooting Scooting to Edge of Bed Maximum Assistance Scooting Up and Down in Bed Dependent PT-Transfer Assessment Sit to and From Stand Sit to and from Stand Maximum Assistance Equipment Transfer Assistive Device Gait Belt,Front Wheeled Walker Orthotic/Prosthetic Devices or Brace: No Comments Mobility Comments Pt was max assist for rolling to the left to sit at the edge of the bed, she was max assist to scoot to the edge of the bed but did attempt to scoot forward. She needed verbal cues for hand placement and was unable to follow commands due to confusion. Her seated balance is poor and she needed assist to stay upright as she wanted to lean backward. Once seated she was max assist to stand at the edge of the bed and pt kept kicking her legs as I was attempting to stand her. She did not reach for the fww and was very fearful with standing. Max assist was used to sit back at the edge of the bed where pt again was very confused. Max assist to return to bed and max A x 2 to scoot up in bed. Pt attempted to help scoot but was unable to follow commands to bend knees and push through her feet to help her scoot in bed. Gait not tested as pt is not able to follow directions due to confusion Gait Assessment Assistive Devices Assistive Device Front Wheeled Walker Orthotic/Prosthetic Devices or Brace: No PT-Balance Assessment Sitting Balance and Reactions Static Sitting Balance Ability Poor Dynamic Sitting Balance Ability Poor M5 PT-IP Objective Assessments Start: 10/04/20 12:38 Freq: NEEDED Status: Active Protocol: Document 10/04/20 12:38 [facility] (Rec: 10/04/20 13:01 [facility] [id number]) Orientation Orientation/Cognition Level of Alertness Confusional State Orientation Name Safety Awareness Decreased Safety Awareness Comments pt very confused as to where she is and why and unable to follow commands. Gross Range of Motion Upper Extremity ROM Assessment Within Functional Limits Lower Extremity ROM Assessment Within Functional Limits Strength Lower Extremity Strength Assessment Bilaterally Impaired Comments Strength Comments right LE has two wounds that are covered, left foot has a severe bunion M6 PT-IP Treatment Start: 10/04/20 12:38 Freq: NEEDED Status: Active Protocol: Document 10/04/20 12:38 [facility] (Rec: 10/04/20 13:01 [facility] [id number]) Physical Therapy Treatment Exercises Exercises Ankle Pumps,Heel Slides Other Treatments Other Treatment Performed pt was PROM for ankle pups and heel slides after we did a few she was able to actively perform heel slides however it was difficult to follow commands to do more than a few M7 PT-IP Assessment and Plan Start: 10/04/20 12:38 Freq: NEEDED Status: Active Protocol: Document 10/04/20 12:38 [facility] (Rec: 10/04/20 13:01 [facility] [id number]) PT Summary Assessment and Plan Potential Rehabilitation Potential Poor Status of Condition at Evaluation Evolving Summary Impairments ROM,Strength,Balance,Cognition ,Bed Mobility,Transfers,Gait, Activity Tolerance Assessment Summary 80 year old pleasant female with confusion and recurrent UTI's. The patient resides at [facility] and the plan is to return her there when medically stable. She was very confused when working with her this afternoon She was able to tell me her name but that was all. She required max A for bed mobility, seated balance, and sit to stand. She demonstrated poor seated balance and needed assist to prevent her from leaning backwards on the bed. Once I started moving her she was able to attempt to help however was not able to follow through due to confusion. She was easily distracted with examination today which made it difficult to fully assess her mobility. She needs multiple verbal cues for rolling in bed and bed mobility. The lower right leg has a stage II pressure ulcer and Tram has a history of a sacral ulcer. She will benefit from bed mobility, transfer training, seated balance training and AAROM for the LE. Goals Bed Mobility Goal Minimal Assistance Transfer Goal Moderate Assistance Gait Goal Minimal Assistance Days to Meet Goals 4 Frequency of Treatment Frequency Of Treatment Once a Day Treatment Plan Physical Therapy Treatment Plan Bed Mobility Training,Transfer Training,Gait Training, Therapeutic Exercise,Balance Retraining Recommendations To Nursing Amount of Assist Needed 2 Person Assist Discharge Recommendations PT Discharge Recommendations SNF Rehab Transportation Needs at Discharge Wheelchair/Cabulance
--- NOTE | 2020-10-04 13:57 | OT.IPNOTE ---
Patient declined participation with OT EVAL this date. She appears confused stating that she didn't want to get up this early on a Monday morning, despite orientation to time with patient approached at 1:45pm. Will attempt to follow-up for EVAL tomorrow if patient agreeable.
[2020-10-04] MEDS: QUETIAPINE 25 MG TABLET 12.5 MG PO (20:44)
[2020-10-04] MEDS: SENNOSIDES 8.6 MG TABLET 17.2 MG PO (20:46)
[2020-10-05] VITALS (7 sets, daily range): BP systolic 102–151; BP diastolic 52–72; PULSE 63–76; RESP 16–20; TEMP 36.4–38.3; O2SAT 95–100
--- NOTE | 2020-10-05 00:04 | PC.NURSE ---
Addendum entered by Domi Beck R.N. 10/05/20 03:43: 2330 Notified by CATTLE TESTER the patient refused vitals. Also, the patient reportedly said to the CATTLE TESTER, I have a blade on me. Unsure if meant in a threatening way. Patient reoriented to place, and left to rest. No s/sx of distress. Original Note: 2300 Received safe hand-off report. The patient is awake, resting in bed. She is only oriented to name and date of . She has a PIV in the right wrist that has NS infusing at 100mL/h. The bed alarm is on. It was relayed to me by previous nurse that when she was given her evening medications with pudding, she was coughing. Upon assessment, her speech is mumbled and word choices are confused. S/sx negative for stroke. I was told this is her baseline since being brought to the hospital. When observing her movements, she seems to be having hallucinations as she is grabbing for things in the air and opening and closing her mouth with her tongue out like she is trying to drink something that isn't there. I placed an order for a CRIMPING MACHINE OPERATOR swallow evaluation, but did not place her NPO. Right now, she is a 1:1 feed. No s/sx of distress. Will continue to monitor.
[2020-10-05] MEDS: SODIUM CHLORIDE 0.9% 1,000 ML 100 ML IV (03:22)
[2020-10-05 05:52] LABS: Add Manual Diff / Slide Review NO; Basophils Absolute Auto 0 /uL (0-100); Basophils Percent Auto 0.7 % (0-2); Eosinophils Absolute Auto 200 /uL (0-450); Eosinophils Percent Auto 3.1 % (2-4); Hematocrit 25.7 % (36-46); Hemoglobin 8.6 g/dL (12.0-16.0); Lymphocytes Absolute Auto 900 /uL (1100-4500); Mean Corpuscular HGB Conc 33.6 % (30-36); Mean Corpuscular Volume 92.4 fL (80-100); Monocytes Absolute Auto 300 /uL (0-900); Monocytes Percent Auto 5.6 % (3-14); Neutrophils Absolute Auto 4700 /uL (1500-7000); Neutrophils Percent Auto 75.6 % (50-75); Platelet Count 147 X10^3/uL (150-400); Red Blood Cell Count 2.79 X10^6/uL (4.0-5.2); White Blood Cell Count 6.2 X10^3/uL (4.5-11.0)
[2020-10-05 06:04] LABS: BUN Creatinine Ratio 27.3 (6-22); Blood Urea Nitrogen 41 mg/dL (7-17); Calcium 8.6 mg/dL (8.4-10.2); Carbon Dioxide 23 mmol/L (22-32); Chloride 115 mmol/L (98-107); Estimated Glomerular Filt Rate 33.2 mL/min (>60); Glucose 130 mg/dL (80-110); HEMOLYSIS < 15 (0-50); Sodium 141 mmol/L (137-145)
[2020-10-05 06:33] LABS: TSH w/ Reflex to FT4 3.21 uIU/mL (0.47-4.68)
[2020-10-05] MEDS: INSULIN ASPART 100 UNIT/ML INSULN PEN SUBCUT ×4 (08:42→21:07)
[2020-10-05] MEDS: MEROPENEM 1 GM in SODIUM CHLORIDE 0.9% 100 ML 200 ML IV ×2 (08:50→20:46)
[2020-10-05] MEDS: HEPARIN 5,000 UNIT/ML VIAL 5000 UNIT SUBCUT ×2 (08:51→20:41)
--- NOTE | 2020-10-05 08:59 | SLP.IPNOTE ---
Addendum entered by Lashay Castillo R.N. 10/05/20 09:59: Waffle cushion added to prevent further skin breakdown, along with Q2 turns. Original Note: Swallow evaluation orders received. Attempted to evaluate but pt would not wake up sufficiently despite efforts by MD, Nsg and ART INSTALLER. Will attempt again later in the day as able.
[2020-10-05] MEDS: NYSTATIN POWDER 15GM 1 APPLIC TOP ×4 (09:42→20:44)
--- NOTE | 2020-10-05 09:52 | PC.NURSE ---
Addendum entered by Lashay Castillo R.N. 10/05/20 10:56: Photos and measurements taken of both wounds on right ankle Original Note: Patient is hard to rouse. Oriented to self. Patient has open wounds on Right leg, bandages were changed today to allevyn dressing. Bilateral lower leg edema 1+. Lung sounds fine crackles bilaterally in the upper lobes, dim in the lower lobes. Bed bath given today.
--- NOTE | 2020-10-05 09:57 | OT.IPNOTE ---
Per nursing aid pt just received a bed bath and now tired and resting. Therefore to attempt OT eval tomorrow.
--- NOTE | 2020-10-05 11:51 | PT.IPTN ---
Physical Therapy Treatment Note M2 PT-IP Current Condition Start: 10/04/20 12:38 Freq: NEEDED Status: Active Protocol: Document 10/04/20 12:38 [facility] (Rec: 10/04/20 13:01 AMH [id number]) Physical Therapy Current Condition Current Condition Evaluation Date 10/04/20 Treatment Diagnosis UTI, increasing confusion, chronic kidney disease stage 4 Weight Bearing Status Weight Bearing Status Full Weight Bearing M3 PT-IP Subjective Start: 10/04/20 12:38 Freq: NEEDED Status: Active Protocol: Document 10/05/20 11:35 AW (Rec: 10/05/20 11:51 AW [id number]) Subjective Physical Therapy Visit Type Type Treatment Note Visit Start Time 11:02 Visit Stop Time 11:29 Total Visit Minutes 27 Number of ELECTROENCEPHALOGRAM TECHNOLOGIST Visits 0 Physical Therapy Visit Comments Patient Comments Pt is awake and oriented to self. She remembers bathing earlier today. Therapy Pain Assessment Pain When Pain Assessed During Mobility Pain Present Pain Present Denied Pain M4 PT-IP Mobility and Gait Start: 10/04/20 12:38 Freq: NEEDED Status: Active Protocol: Document 10/05/20 11:35 AW (Rec: 10/05/20 11:51 AW [id number]) PT-Bed Mobility Assessment Rolling Type of Rolling Roll to Left Level of Assist Maximal Assistance Supine to Sit Supine to Sit Maximum Assistance Scooting Scooting to Edge of Bed Dependent PT-Transfer Assessment Sit to and From Stand Sit to and from Stand Maximum Assistance,1 Person Assistance,Use of Upper Extremities Equipment Transfer Assistive Device Gait Belt,Front Wheeled Walker Orthotic/Prosthetic Devices or Brace: No Transfers Transfer Destination Chair Transfer Technique Stand Step Pivot Transfer Ability Level of Assist Maximum Assistance,1 Person Assistance,Use of Upper Extremities Comments Mobility Comments Supine BP was 141/57 HR 73. Pt required max assist to roll to her left side and to transition from SL to sitting. Sitting balance was poor with strong posterior lean requiring therapist assist as well as max cues for pt to place her hands on the bed to steady herself. Pt had difficulty following simple commands. Attempted to have pt lean forward to touch therapist's hand with the top of her head, but pt was unable to understand the instructions. She was dependent with use of draw sheet to scoot to EOB. Pt stood with max 1PA and max cues for quad activation with pt leaning heavily backward. She sat on the bed within 5 seconds. Pt stood again with FWW and max 1PA and step pivot transferred to the bedside chair set up 90 degrees to her left. Pt was unsteady and her knees buckled during the transfer, requiring max assist to remain upright. As pt lined up to descend to the chair, PT assisted to swivel her hips toward the seat. After a seated rest break, pt agreed to stand again in order to place waffle cushion on the chair. She stood ~30 seconds on this attempt with max 1PA. Pt sat again with poor control of descent which required max assist. RN was called to assist with scooting the pt back in the chair. Pt was positioned with legs elevated, call light in reach, and chair alarm armed for safety. Gait Assessment Comments Gait Comments Transfer only. See mobility comments. PT-Balance Assessment Sitting Balance and Reactions Static Sitting Balance Ability Poor Dynamic Sitting Balance Ability Poor Standing Balance and Reactions Static Standing Balance Ability Poor Dynamic Standing Balance Ability Poor Device Used FWW M5 PT-IP Objective Assessments Start: 10/04/20 12:38 Freq: NEEDED Status: Active Protocol: Document 10/04/20 12:38 AM[facility] (Rec: 10/04/20 13:01 AMH [id number]) Orientation Orientation/Cognition Level of Alertness Confusional State Orientation Name Safety Awareness Decreased Safety Awareness Comments pt very confused as to where she is and why and unable to follow commands. Gross Range of Motion Upper Extremity ROM Assessment Within Functional Limits Lower Extremity ROM Assessment Within Functional Limits Strength Lower Extremity Strength Assessment Bilaterally Impaired Comments Strength Comments right LE has two wounds that are covered, left foot has a severe bunion M6 PT-IP Treatment Start: 10/04/20 12:38 Freq: NEEDED Status: Active Protocol: Document 10/05/20 11:35 AW (Rec: 10/05/20 11:51 AW [id number]) Physical Therapy Treatment Exercises Exercises Ankle Pumps,Quad Sets Other Treatments Other Treatment Performed Pt required max cues to complete 5 reps each. M7 PT-IP Assessment and Plan Start: 10/04/20 12:38 Freq: NEEDED Status: Active Protocol: Document 10/05/20 11:35 AW (Rec: 10/05/20 11:51 AW [id number]) PT Summary Assessment and Plan Potential Rehabilitation Potential Fair Status of Condition at Evaluation Stable Summary Impairments ROM,Strength,Balance,Cognition ,Bed Mobility,Transfers,Gait, Activity Tolerance Assessment Summary Pt is oriented to self, day of week, and place. She requires frequent reorientation to situation. She continues to require max cues and max assist for all mobility. She presents with significant BLE weakness. She was unable to tolerate much sitting balance activity today and transfer was quite tiring. Pt would benefit from return to [facility] at discharge before possible return to [facility]. Goals Bed Mobility Goal Minimal Assistance Transfer Goal Moderate Assistance Gait Goal Minimal Assistance Days to Meet Goals 4 Frequency of Treatment Frequency Of Treatment Once a Day Treatment Plan Physical Therapy Treatment Plan Bed Mobility Training,Transfer Training,Gait Training, Therapeutic Exercise,Balance Retraining Recommendations To Nursing Amount of Assist Needed 1 Person Assist,2 Person Assist Discharge Recommendations PT Discharge Recommendations SNF Rehab Transportation Needs at Discharge Wheelchair/Cabulance
[2020-10-05] MEDS: METOPROLOL IR 50 MG TABLET PO ×2 (12:19→20:41)
[2020-10-05] MEDS: CHOLECALCIFEROL (VITAMIN D3) 1,000 UNIT TABLET 1000 UNIT PO (12:19)
[2020-10-05] MEDS: FERROUS SULFATE 325 MG TABLET PO (12:19)
[2020-10-05] MEDS: DOCUSATE 100 MG CAPSULE PO (12:19)
[2020-10-05] MEDS: polyethylene glycoL 3350 17 GM POWD.PACK PO (12:19)
--- NOTE | 2020-10-05 13:50 | DIET.PN ---
Dietary Progress Note Assessment: 80y F admitted for metabolic encephalopathy secondary to UTI referred to nutrition for BMI 33.2, insulin dependent DM2. Pt remains profoundly confused c hx of DM2 (well controlled A1c 5.9), CKD 4, and Stage 2 pressure ulcers on leg c evidence of healed sacral pressure sore. Pt has spent considerable time at [facility] for UTI and remains at [facility] for rehab otherwise. Meals all provided and within CCD requirements. Speech assigned Dysphagia diet c thin liquids and 1:1 supervision. Pt at high risk for dehydration secondary to both reduced thirst in advanced age as well as ongoing dementia. This RD will add ONS Nepro c dinner tray for pt to sip on in evening to support renal-friendly PRO for healing pressure sores as pts POs ~10-50%. Recc continued encouragement on drinking fluids in long run. HT: 152.4cm WT: 71.9kg BMI: 31.0 Labs: BUN 41 H, Cr 1.5 H, eGFR 33.2 L, A1c 5.9 MNA: 8 @ risk for malnutrition Marlon: 16 @ risk for skin breakdown
--- NOTE | 2020-10-05 14:37 | PT-IP ANOTE ---
Discussed pt's PLOF with nurse Wake[place] at [facility]. She has been in and out of the facility over the last two months. She is fiercely independent and will often ambulate without assist to the bathroom and back. She is currently classified as a limited 1 person assist.
--- NOTE | 2020-10-05 15:05 | P.PN_ITS ---
Subjective Subjective Date Patient Seen: 10/05/20 Interval history: Tram Reagan is an 80-year-old female with a past medical history significant for CAD, PAD, hypertension, hyperlipidemia, diabetes mellitus type II, insulin using, CKD, and dementia who presented to ED from nursing home facility with increasing confusion and leukocytosis on outpatient labs. The patient is resting in bed comfortably. Her mentation is much improved. She is alert oriented to person, place and partially time. She received low dose seroquel last night and her UTI and dehyration are being treated all of which is likely improved her mentation. She continues to have minimal confusion and has dementia at baseline. She denies headache, cough, shortness of breath, chest pain, abdominal pain, nausea, vomiting, fever, chills, dysuria, diarrhea or constipation. She is voiding via Johnson catheter and eliminating without difficulty after bowel regimen has been implemented. She is up ambulating min imally with maximal assistance. Continue PT and OT. Exam Vital Signs (past 8 hours): - 10/05/20 12:00 10/05/20 15:00 Temperature 99.0 F 97.5 F L Pulse Rate 65 63 Respiratory Rate 16 18 Blood Pressure 132/72 151/60 H Pulse Oximetry 97 98 Oxygen Delivery Method Room Air Oxygen Flow Rate 0 Narrative Exam Narrative: General: Elderly female lying in bed and in no acute distress, mentation improving with mild confusion, appropriately interactive. HEENT: Normocephalic, atraumatic. External ears without defect. Pupils equal, round, and reactive to light. Anicteric sclerae, moist conjunctivae, and no lid lag. Oropharynx free of erythema and cobble stoning with moist mucosa. Neck: Supple with full range of motion. No jugular venous distension. No lymphadenopathy or thyromegaly. Cardiovascular: Regular rate and rhythm without murmurs, rubs, or gallops appreciated. Pulmonary: Clear to auscultation bilaterally without crackles, wheezes, or rhonchi. Normal respiratory effort with no use of accessory muscles. Abdomen: Soft, bowel sounds present, nontender, nondistended. No hepatosplenomegaly or masses appreciated. Extremities: No clubbing, cyanosis, or edema. Bilateral lower extremities with stasis dermatitis and sclerosis of skin. Two 1 cm nonhealing venous stasis ulcers of distal right lower extremity on meidal and one lateral. Neurological: Cranial nerves grossly intact. Psychiatric: Alert and oriented to person, partially place and time. Delerium and confusion resolving. Chronic mild to moderate dementia at baseline with short and retirement memory impairment per son. Objective Labs Result Diagrams: 10/06/20 04:41 10/06/20 04:41 Labs: Laboratory Results - last 24 hr 10/05/20 10/05/20 10/05/20 05:38 05:38 05:38 WBC 6.2 D RBC 2.79 L Hgb 8.6 L Hct 25.7 L MCV 92.4 MCH 31.0 MCHC 33.6 RDW 14.0 Plt Count 147 L Neut % (Auto) 75.6 H Lymph % (Auto) 15.0 L [place] % (Auto) 5.6 Eos % (Auto) 3.1 Baso % (Auto) 0.7 Neut # (Auto) 4700 Lymph # (Auto) 900 L [place] # (Auto) 300 Eos # (Auto) 200 Baso # (Auto) 0 Sodium 141 Potassium 4.0 Chloride 115 H Carbon Dioxide 23 BUN 41 H Creatinine 1.50 H Estimated GFR 33.2 L BUN/Creatinine Ratio 27.3 H Glucose 130 H Calcium 8.6 Procalcitonin 1.10 H TSH 10/05/20 05:38 WBC RBC Hgb Hct MCV MCH MCHC RDW Plt Count Neut % (Auto) Lymph % (Auto) [place] % (Auto) Eos % (Auto) Baso % (Auto) Neut # (Auto) Lymph # (Auto) [place] # (Auto) Eos # (Auto) Baso # (Auto) Sodium Potassium Chloride Carbon Dioxide BUN Creatinine Estimated GFR BUN/Creatinine Ratio Glucose Calcium Procalcitonin TSH 3.21 [facility] Medical History (Updated 10/03/20 @ 22:43 by KATRINA Barlow-RAMESH) Acute UTI Anemia CKD (chronic kidney disease) stage 4, GFR 15-29 ml/min Diabetes Diabetes type 2, controlled Hyperlipidemia Hypertension Insulin dependent diabetes mellitus Obesity (BMI 30.0-34.9) Pressure ulcer of right lower extremity Pressure ulcer of sacral region Unspecified dementia without behavioral disturbance Family History (Updated 10/03/20 @ 22:46 by KATRINA Barlow-RAMESH) Brother No problems noted. Brother No problems noted. Social History household members: children Assessment & Plan Assessment & Plan narrative: Tram Reagan is an 80-year-old female with a past medical history significant for CAD, PAD, hypertension, hyperlipidemia, diabetes mellitus type II, insulin using, CKD, and dementia who presented to ED from nursing home facility with increasing confusion and leukocytosis on outpatient labs. 1. ESBL Klebsiella UTI, present on admission. Resolving. -Patient was diagnosed outpatient with ESBL Klebsilella UTI by irine culture 09/22 and started treatment with ertapenem on 09/25 to complete 14 days total (completed 7 out of 14). Previous klebsiella UTI which was not ESBL on 08/11 at [facility]. -Patient presented with increasing confusion and elevated WBC and procalcitonin. Initial WBC 11.9 and procalictonin 3.96. WBC normalized now 6.2 and procalcitonin trending down now 1.10. Continue to monitor WBC and procalcitonin daily. -Repeat urine and blood cultures preliminarily have no growth. Picc line removed and tip cultured without growth. -Switched ertapenem to renally dosed meropenem 1 g every 12 hours as less p ropensity to cause confusion per ID. 2. Acute metabolic encephalopathy, in setting of dementia without behavioral disturbance, present on admission. Acute metabolic encephalopathy resolving. -Acute delerium from UTI, dehydration and etrapenem and treated as above and below. Concern for hypoglycemia with numerous oral antihyperglycemics and insulin which could precipitate confusion.Patient has chronic mild to moderate dementia at baseline. GCS 14. -CT brain without contrast did not demonstrate stroke, hemorrhage or mass. -Continue to reorient and redirect frequently. -Patient was acutely delerious with hallucinations (auditory and visual) which have resolved with only mild intermittent confusion. Patients son and DPOA Atif Reagan would like infection and dehydration treated without aggressive medical interventions pursued and patient to be kept comfortable. Discussed CT findings and severe systemic atherosclerosis with stenosis of right renal artery, celiac and SMA artery and possibility for viscus infarction at anytime, as well as, appropriateness of hospice which he is open to. Started low dose seroquel 12.5 mg daily at bedtime. 3. TAMI secondary to UTI and dehydration, in setting of chronic polycystic kidney disease, unknown stage likely 3, present on admission. TAMI resolving. -Initial creatinine 1.87 and BUN 61 with CrCl 15.5. Baseline creatinine unknown. Previous history of TAMI on 08/23 with hospitalization at [facility] in which creatinine was 2.41. Creatinine improved with IV fluid hydration now 1.50 and may be close to baseline it is unclear. -CT KUB demonstrated polycystic kidney disease with no evidence of hydronephrosis or obstructive uropathy. Upon visualization of KUB images patient had noted significant bladder distension and Johnson catheter was placed with immediate 700 cc of UOP. -Avoid nephrotoxic agents and renally dose medications. Held lisinopril. D iscontinued furosemide as patient is high risk of dehydration with dementia and this is second hospitalization in 1 month. -Discontinued IV fluids with NS at 100 mL/hr as patient appears adequately hy drated and encourage PO intake of fluids. -Continue to monitor creatinine daily. 4. Diabetes mellitus type 2, insulin using, chronic, present on admission. Stable. -Hemoglobin A1C 5.9% indicative of excellent glycemic control and in range of prediabetes. Concern for hypoglycemia with numerous oral antihyperglycemics and insulin which could precipitate confusion. -Held oral anti hyperglycemics. -Continue ACHS blood glucose checks and medium dose correctional scale insulin. -Continue home Lantus 25 units at bedtime and may need to lower dose depending on BG trend. -Continue dyspahgia mechanical with heart health/carbohydrate consistent diet. 5. Coronary artery disease and peripheral arterial disease, chronic, present on admission. Stable. -Patient has two chronic non-healing venous ulcers on right lower extremity which she has been followed by wound care. Continue nursing wound care with irrigation and wet to dry dressing change daily and as needed. 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 -Continue aspirin 81 mg daily, switched home lovastatin to atorvastatin 40 mg daily at bedtime as more effective and higher potency with less adverse effects, and metoprolol tartrate 50 mg twice daily. -Continue physcial and occupational therapy evaluation and treatment. 6. Obesity, chronic, present on admission. Stable. -BMI 30.6. -Patient has a much higher risk for medical or surgical complications due to her morbid obesity it increases the chances of poor outcomes and recovery from infections or surgery. -Consulted dietitian we appreciate her time and recommendations. 7. Normocytic iron deficiency anemia, chronic, present on admission. Stable. -Initial hemoglobin 10.7. Hemoglobin trending down now 10.0 likely due to dilution from IV fluids. -Continue home ferrous sulfate 325 mg daily and vitamin-D 50 mcg daily. 8. Hypertension, chronic, present on admission. Stable. -Held lisinopril due to TAMI. Continue home metoprolol tartrate 50 mg twice daily. 9. Constipation, acute on chronic, present on admission. Resolving. -Patient has heavy stool burden on CT KUB. -Continue bowel regimen with colace 100 mg twice daily, Miralax 17 g daily and as needed suppository for persitent constipation. Code status: DNR/DNI, surrogate decision maker designated as her son Atif Reagan VTE prophylaxis: SQ heparin Disposition: Patient likely to discharge to nursing home facility for continued rehabilitation and IV antibiotics tomorrow
--- NOTE | 2020-10-05 15:14 | ST.IPIE ---
Visit Care Team Role Provider Type ALEXIS Gómez Family Provider Non-Staff Primary Care Provider Specialty: Medical Address: [address] [place] [address] [place], [address] Email: Queenie Shea DO Emergency Provider Physician Specialty: Emergency Medicine Address: [address] [place] [address], [id number] Email: [email or web address] Nadeen Navas DO Admit Provider Physician Attending Provider Specialty: Internal Medicine Address: [address] [place] [address], [id number] Email: [email or web address] Past Medical History (Last Updated 10/03/20 @ 22:43 by Winsome Green [facility]) Acute UTI (Medical) Anemia (Medical) CKD (chronic kidney disease) stage 4, GFR 15-29 ml/min (Medical) Diabetes (Medical) Diabetes type 2, controlled (Medical) Hyperlipidemia (Medical) Hypertension (Medical) Insulin dependent diabetes mellitus (Medical) Obesity (BMI 30.0-34.9) (Medical) Pressure ulcer of right lower extremity (Medical) Pressure ulcer of sacral region (Medical) Unspecified dementia without behavioral disturbance (Medical) ST IP Initial Evaluation Report INVENTORY CONTROL CLERK Clinical Swallow Evaluation Start: 10/05/20 14:13 Freq: Status: Active Protocol: Document 10/05/20 14:13 KAT (Rec: 10/05/20 14:37 KAT [id number]) Clinical Swallow Evaluation Session Time Visit Start Time 11:50 Visit Stop Time 12:20 Total Visit Minutes [address] Navas Reason for Referral Pt observed coughing with pills in pudding Setting Assessment Location Acute Care Visit Type Note Type Initial evaluation Next Note Type Next Note Type Treatment Note Patient Information Identification Type Name,ID Card History The pt is an 80-yr-old female who has been residing at [facility] after hospitalization at [facility] from 08/23 to 08/27/2020 for metabolic encephalopathy, dehydration with elevated creatinine of 2. 41 up from 1.29 on 08/11, an indeterminate troponin of 0. 079, acute kidney injury with worsening renal function GFR on 08/11 (39),08/23 (18). MRSA, ESBL (UTI), and altered mental status. And prior to that in [facility] from 08/11-08/17 for Klebsiella UTI sepsis. had been residing at [facility], following the August 23- 2019 hospitalization was moved to [facility]. She presented to ED from [facility] with increased WBC and increased confusion. Baseline cognition is unknown but noted to be declining, per reports from son and Dr. Crowe. During this hospital stay the pt has had hallucinations and ongoing confusion. She was observed to cough while taking pills in pudding, and swallow evaluation was ordered. Subjective Observations The pt was sitting up in chair , awake and alert. She did not recall this INVENTORY CONTROL CLERK attempting to see her earlier in the day when the pt was quite somnolent. She expressed being hungry and ready for lunch. Her meal tray was brought into the room. Reported by Patient Current Diet Regular,Thin liquids Baseline Feeding Method Needs some assistance Objective Assessment Mental Status Alert,Responsive,Cooperative, Confused Oral Integrity Xerostomia/Dry mouth Dentition Dentures or partials present, Adequate denture or partial fitting Lip Function Mild impairment Observation of Lips at Rest Symmetrical Pucker Within normal limits Lip Retraction Within normal limits Alternating Pucker/Lip Retraction Incoordination Tongue Function Mild impairment Observations of Tongue at Rest Within normal limits Tongue Protrusion Reduced range of motion, Reduced strength Tongue Lateralization Reduced range of motion, Reduced strength Jaw Function Within normal limits Observations of Jaw at Rest Within normal limits Jaw Opening Within normal limits Hard/Soft Palate Function Mild impairment Observations of Hard/Soft Palate Reduced strength/ROM of soft palate elevation Nasality Within normal limits Phonation Within normal limits Respiratory Sufficiency Within normal limits Comment The pt's tongue and lips were observed to be very dry. Lips were chapped with patches of loose skin, some of which was removed with wet swab. General reduced strength and coordination was observed. The pt followed simple 1-step directions with familiar structures (smile, stick out your tongue, etc.) and required demonstration of less familiar instructions, which she had difficulty completing d/t confusion. The pt was not wearing dentures upon INVENTORY CONTROL CLERK arrival. When they were offered to her, she put them in with some confusion requiring min assistance. For example, while holding her bottom dentures she asked if the nurse had her bottom dentures. Food and Liquid Trials Position During Assessment Upright (90 degrees) Liquids Trialed Ice chips,Thin,[place] Solids Trialed Puree,Dysphagia Mechanical, Dysphagia Advanced,Mechanical Soft Administration Type Tea spoon,Cup single sip, Controlled cup sip,Cup consecutive sips,Straw,Needs some assistance Oral Impairment Mildly impaired Oral Phase Comments Mild oral dysphagia secondary to reduced strength and coordination resulting in anterior munching of solids and slowed bolus prep and a/p propulsion. During prep phase it is suspected that some escape of the bolus to the pharynx occurs prior to onset of swallow, which would increase the pt's risk of aspiration. Pharyngeal Impairment Mildly impaired Pharyngeal Phase Comments The pt exhibited cough x1 following consecutive sips of thin liquid from cup. No other overt s/sx of aspiration was observed. The pt's voice remained clear throughout. Given the single episode cough response, silent aspiration is not strongly suspected, although this could not be ruled out without instrumental evaluation. Fatigue/Endurance Endurance WNL Comment The pt mostly self-fed with slowed movements and moderate difficulty maintaining a level spoon to balance the bolus. She frequently required multiple attempts to accurately bring spoon to mouth, but did so sufficiently to self-feed most trials. Occasional [id number] assistance was provided. Findings Swallowing Function Oropharyngeal phase dysphagia Severity of Swallow Impairment Mildly impaired Contributing Factors to Swallow Reduced alertness or attention Impairment ,Difficulty following directions,Reduced oral strength/coordination/ sensation,Mastication inefficiency,Impaired oral- pharyngeal transport,Delayed swallow initiation Prognosis Good Based on Duration of symptoms/severity Impact on Safety and Functioning Risk for aspiration Recommendations Instrumental Assessment No Swallowing Treatment Yes Frequency F/U 1-2x for assessment of ongoing diet tolerance Recommended Solids Dysphagia Advanced Recommended Liquids Thin Safety Precautions/Swallowing Feed only when alert,Reduce Recommendations distractions,Remain upright ( 90 degrees) during all oral intake,Needs verbal cues to use recommended strategies, Upright position at least 30 minutes after meals,Small bites and sips when eating, Slow rate; swallow between bites,Set-up assistance,1 to 1 feeding assistance,Strict oral care after intake Medication Recommendations Whole in Carrier Discharge Recommendations long-term facility,residential care facility Education Patient/Caregiver Education Described results of evaluation,Patient expressed understanding of evaluation, Patient expressed agreement with goals & treatment plans, Patient requires further education/training Goals Short-term Goals 1. The pt will follow safe swallow strategies with verbal cuing to reduce risk of aspiration. Long-term Goals 1. The pt will tolerate least restrictive diet to meet her nutrition and hydration needs.
[2020-10-05] MEDS: ATORVASTATIN 20 MG TABLET 40 MG PO (20:40)
[2020-10-05] MEDS: QUETIAPINE 25 MG TABLET 12.5 MG PO (20:41)
[2020-10-05] MEDS: SODIUM CHLORIDE 0.9% FLUSH 10 ML IV (20:48)
[2020-10-05] MEDS: INSULIN GLARGINE 100 UNIT/ML 3ML PEN 25 UNIT SUBCUT (21:09)
[2020-10-06] VITALS (7 sets, daily range): BP systolic 107–138; BP diastolic 50–81; PULSE 61–82; RESP 15–18; TEMP 36.4–37.3; O2SAT 98–100; BMI 31.5
[2020-10-06 05:22] LABS: Add Manual Diff / Slide Review NO; Basophils Absolute Auto 0 /uL (0-100); Basophils Percent Auto 0.5 % (0-2); Eosinophils Absolute Auto 400 /uL (0-450); Eosinophils Percent Auto 5.9 % (2-4); Hematocrit 26.4 % (36-46); Hemoglobin 8.8 g/dL (12.0-16.0); Lymphocytes Absolute Auto 1000 /uL (1100-4500); Lymphocytes Percent Auto 14.1 % (25-40); Mean Corpuscular HGB Conc 33.4 % (30-36); Mean Corpuscular Hemoglobin 30.7 PG (26-34); Mean Corpuscular Volume 91.8 fL (80-100); Monocytes Absolute Auto 400 /uL (0-900); Neutrophils Absolute Auto 5200 /uL (1500-7000); Neutrophils Percent Auto 74.5 % (50-75); Platelet Count 165 X10^3/uL (150-400); Red Blood Cell Count 2.88 X10^6/uL (4.0-5.2); Red Cell Distribution Width 13.6 % (11.6-14.8)
[2020-10-06 05:32] LABS: Blood Urea Nitrogen 33 mg/dL (7-17); Carbon Dioxide 24 mmol/L (22-32); Chloride 113 mmol/L (98-107); Estimated Glomerular Filt Rate 42.2 mL/min (>60); Glucose 68 mg/dL (80-110); HEMOLYSIS < 15 (0-50); Magnesium 1.8 mg/dL (1.6-2.3); Potassium 3.9 mmol/L (3.4-5.1); Sodium 140 mmol/L (137-145)
[2020-10-06 06:00] LABS: Procalcitonin 0.52 ng/mL (<0.5)
--- NOTE | 2020-10-06 06:47 | PC.NURSE ---
Lead Sql Developer Note-Patient continues to be confused, oriented only to self, sometimes states she is in the hospital but not which one. Has been mildly restless throughout night, fidgeting with clothes and IV site, talking to herself, and reaching into the air. BG per am lab draw = 68, CBG rechecked to be 59, sat patient up in high fowlers to drink cran juice and eat some peaches, no coughing or choking, CBG 20 minutes later = 81.
--- NOTE | 2020-10-06 08:30 | ST.IPDYTX ---
MINING ANALYST Dysphagia Treatment MINING ANALYST Dysphagia Treatment Start: 10/05/20 14:13 Freq: Status: Active Protocol: Document 10/06/20 10:02 TLC (Rec: 10/06/20 10:26 TLC [id number]) Dysphagia Treatment Session Time Visit Start Time 07:55 Visit Stop Time 08:25 Total Visit Minutes 30 Setting Assessment Location Acute Care Visit Type Note Type Treatment Note Next Note Type Next Note Type Treatment Note Patient Information Identification Type ID Wristband Subjective Observations Tram was lying in bed, pleasant but intermittently alert. She was not oriented to place or situation. She answered some simple questions appropriately, but was confused and asked about a wedding. HOB was raised to 90 degrees; however, patient became dizzy and felt as though she was falling so HOB was reclined slightly. Treatment Liquids Trialed Thin Solids Trialed Puree,Dysphagia Mechanical, Dysphagia Advanced Administration Type Dependent Feeding Oral Strategies Controlled Bite/Sip Size, Alternate Liquids/Solids, Dementia Strategies Treatment Activities Assessment of oral cavity revealed dry mucosa and dry, cracked lips. Patient was unable to feed herself this morning, despite multiple attempts and prompts/cues. When fed, she did not display clinical signs of aspiration. Signs of mild oral phase dysphagia were oral residue, which patient was able to clear with prompted second swallow, liquid wash and/or tongue sweep to corners of mouth. Discussed recommendations for oral care and ongoing 1:1 assistance with nursing staff who verbalized understanding. Assessment Patient Response to Treatment Good Rehab Potential Fair Assessment of Improvement Patient continues to require 1 :1 assistance and is not safe to eat independently at this time due to baseline cognitive dysfunction; however, no clinical signs of aspiration were observed this AM. Patient is able to follow simple commands during meals (lick your lips, swallow again). Diet Recommendations Recommendations Continue Current Diet Liquids Order Thin Diet Order Dysphagia Advanced Medication Recommendations As Tolerated Additional Dietary Needs 1:1 Assistance Aspiration Precautions Recommended Precautions Alternate Liquids/Solids,Small Bites/Sips,Double Swallow Treatment Plan Placement Recommendation after Discharge Long-Term Facility Appropriate for Continued Therapy No Therapy Recommendations No further speech therapy recommended at this time. Patient should continue to receive 1:1 feeding assistance with verbal prompts/cues as needed. Nursing administered oral care is recommended following meals, at minimum twice daily. General aspiration precautions are recommended as patient is at increased risk due to cognitive impairments and poor oral health status. Dysphagia Goals 1. The pt will follow safe swallow strategies with verbal cuing to reduce risk of aspiration. - goal met
[2020-10-06] MEDS: FERROUS SULFATE 325 MG TABLET PO (08:38)
[2020-10-06] MEDS: HEPARIN 5,000 UNIT/ML VIAL 5000 UNIT SUBCUT ×2 (08:38→20:36)
[2020-10-06] MEDS: CHOLECALCIFEROL (VITAMIN D3) 1,000 UNIT TABLET 1000 UNIT PO (08:38)
[2020-10-06] MEDS: ASPIRIN EC 81 MG TABLET PO (08:38)
[2020-10-06] MEDS: MEROPENEM 1 GM in SODIUM CHLORIDE 0.9% 100 ML 200 ML IV ×2 (08:39→20:37)
[2020-10-06] MEDS: METOPROLOL IR 50 MG TABLET PO ×2 (08:39→20:37)
[2020-10-06] MEDS: NYSTATIN POWDER 15GM 1 APPLIC TOP ×3 (08:39→20:45)
[2020-10-06] MEDS: DOCUSATE 100 MG CAPSULE PO ×2 (08:39→20:36)
[2020-10-06] MEDS: SODIUM CHLORIDE 0.9% FLUSH 10 ML IV (08:40)
[2020-10-06] MEDS: polyethylene glycoL 3350 17 GM POWD.PACK PO (08:40)
--- NOTE | 2020-10-06 10:21 | OT.IP.EVAL ---
Past Medical History (Last Updated 10/03/20 @ 22:43 by Winsome Green, [facility]) Acute UTI Anemia CKD (chronic kidney disease) stage 4, GFR 15-29 ml/min Diabetes Diabetes type 2, controlled Hyperlipidemia Hypertension Insulin dependent diabetes mellitus Obesity (BMI 30.0-34.9) Pressure ulcer of right lower extremity Pressure ulcer of sacral region Unspecified dementia without behavioral disturbance Occupational Therapy Inpatient Evaluation/Re-Eval M1 PT/OT-IP Prior Functional Status Start: 10/06/20 11:27 Freq: NEEDED Status: Active Protocol: Document 10/06/20 11:27 [facility] (Rec: 10/06/20 12:02 [facility] [id number]) Medical Review Prior Functional Status Medical History Reviewed Yes Communication Prior to hospitalization , pt able to communicate her needs independently on her own. Activities of Daily Living and IADL's Pt called over to [facility] and staff states prior pt needing limited one person assist for needs. Pt able to state needs assist to wash her back and that staff will assist her as needed. Prior Functional Level (Other details) pt resides at [facility] and was taken to the ER with due to increased confusion, She presents with an acute UTI, kidney injury and dehydration Social History Household Members children Living Arrangements Skilled Nurse Facility M2 OT-IP Current Condition Start: 10/06/20 11:27 Freq: Status: Active Protocol: Document 10/06/20 11:27 [facility] (Rec: 10/06/20 12:02 [facility] [id number]) Occupational Therapy Current Condition Current Condition Evaluation Date 10/06/20 Treatment Diagnosis Metabolic encephalopathy/UTI Diagnosis Onset Date 10/03/20 M3 OT- IP Subjective and Pain Start: 10/06/20 11:27 Freq: Status: Active Protocol: Document 10/06/20 11:27 [facility] (Rec: 10/06/20 12:02 [facility] [id number]) OT- Subjective Occupational Therapy Visit Type Type Initial Evaluation Visit Start Time 08:50 Visit Stop Time 10:21 Total Visit Minutes 58 Notes Pt seen for split treatment as having pt more alert to do transfer for second time while seeing the pt. [phone] Occupational Therapy Visit Comments Patient Comments Pt agreed to get up. Pt a bit confused and thinking she is in [place]. OT Pain Assessment Pain When Pain Assessed At Rest Pain Present Pain Present Denied Pain M4 OT- IP ADL's Start: 10/06/20 11:27 Freq: Status: Active Protocol: Document 10/06/20 11:27 [facility] (Rec: 10/06/20 12:02 [facility] [id number]) OT [id number]-Iejfrrt General Evaluation Self-Feeding Ability Maximum Assistance Areas Needing Assistance Bringing Utensil to Mouth, Cutting Food,Drinking From Cup /Glass,Opening Containers Comments OT Self-Feeding Comments At this time pt need 1:1 assist for all self feeding needs as pt not alert and confused. Pt able to hold water bottle in both hands to bring to her mouth. OT ADL-Grooming General Evaluation Areas Needing Assistance Retrieving/Set-up of Grooming Items,Combing/Brushing Hair, Face Washing Comments OT Grooming Comments Pt not able to wash her face after wash cloth placed in her hand and needing assist for all grooming needs at this time. OT ADL-Oral Care General Eval Oral Care Ability Total Assistance Comments Oral Care Comments Pt not following commands well and total assist for oral care. OT ADL-Dressing General Eval Lower Body Dressing Ability Total Assistance Comments OT Dressing Comments Total assist for all LB dressing needs. OT ADL-Toileting Comments OT Toileting Comments Total assist as carr[place] in place . OT ADL-Bathing Comments OT Bathing Comments Not performed. M5 OT- IP IADL's Start: 10/06/20 11:27 Freq: Status: Active Protocol: Document 10/06/20 11:27 [facility] (Rec: 10/06/20 12:02 [facility] [id number]) OT-Instrumental Activities of Daily Living Home Safety Awareness Awareness of Need for Assistance at Home Decreased Awareness Ability to Problem Solve Emergency Unable to Problem Solve Situations Medication Management Medication Management Caregiver Administers Money Management Money Management Caregiver Provides Assistance Meal Preparation Meal Preparation Caregiver Provides Assist Telegraph Office Route Aide Telegraph Office Route Aide Caregiver Provides Assist Driving Driving Caregiver Provides Assist M6 OT- IP Functional Cognition Start: 10/06/20 11:27 Freq: Status: Active Protocol: Document 10/06/20 11:27 [facility] (Rec: 10/06/20 12:02 [facility] [id number]) Cognitive Factors Limiting Selfcare Function Cognitive Ability Level of Alertness Confusional State,Drowsy Patient Orientation Name Attention Span Ability Capable of Focused Attention, Capable of Sustained Attention ,Unable to Sustain Attention Ability to Follow Commands Able to Follow One Step Commands with Increased Time, Able to Follow One Step Commands with Repetition Memory Description Immediate Impaired,Short Term Impaired,Expense Clerk Impaired, Working Impaired Safety Awareness Underestimates Need for Assistance Problem Solving Ability Unable to Identify Errors, Needs Assist to Identify Solutions Cognitive Comments Cognitive Assessment Comments Pt mainly just orientated to her name. Pt states that she is in [place]. Pt states he passed several years also and then next said my and son are coming to get me. Pt thinking that she has pills in her hand and trying to take the medication even though nothing in her hands. OT- Vision and Hearing OT- Hearing Assessment OT- Hearing Assessment WFL OT- Vision Assessment Vision Assessment Comments Pt states wears glasses but none present in the room. M7 OT- IP Mobility and Balance Start: 10/06/20 11:27 Freq: Status: Active Protocol: Document 10/06/20 11:27 [facility] (Rec: 10/06/20 12:02 [facility] [id number]) OT- Bed Mobility Assessment Rolling Type of Rolling Roll to Left Level of Assistance Maximum Assistance,1 Person Assistance Supine to Sit Supine to Sit Assist Maximum Assistance,1 Person Assistance,Bedrails Scooting Scooting to Edge of Bed Maximum Assistance,1 Person Assistance OT-Transfer Assessment Sit to and From Stand Sit to and from Stand Maximum Assistance,1 Person Assistance,2 Person Assistance Transfers Transfer Ability Maximum Assistance,2 Person Assistance Technique Transfer Destination Bed,Chair Transfer Technique Stand Step Pivot Devices Transfer Assistive Devices Gait Belt Comments Mobility Comments Pt needing cues to help to initiate her to move her legs to the edge of the bed. Pt needing MAX A from sidelying to sitting. Pt tends to lean into posterior tilt and needing moda to help lean forwards. MAX A X 2 for stand pivot transfer to the recliner. OT- Gait Assessment Comments Gait Ability Comments NOt at this time. OT- Balance Assessment Sitting Balance and Reactions Static Sitting Balance Ability Poor Dynamic Sitting Balance Ability Poor Standing Balance and Reactions Static Standing Balance Ability Poor M8 OT- IP Objective Assessments Start: 10/06/20 11:27 Freq: Status: Active Protocol: Document 10/06/20 11:27 [facility] (Rec: 10/06/20 12:02 [facility] [id number]) OT Gross Range of Motion Upper Extremity Range of Motion Assessment Bilaterally Impaired ROM Impairments Impaired at end ranges. OT Strength Comments Strength Comments NOt able to fully assess as pt not following commands consistently but at least 3-/5 as able to assist for mobility needs. OT- Coordination Assessment Comments Coordination Comments Pt's hands swollen R> L and arthritic changes noted. OT-Muscle Tone Assessment Muscle Tone WNL Yes OT Sensation Assessment Comments Summary Comments Intact but having difficulty with word finding of the body parts on the left arm. Edema Edema Present Edema Comments Right hand swollen greater than left hand. M9 OT- IP Assessment and Plan Start: 10/06/20 11:27 Freq: Status: Active Protocol: Document 10/06/20 11:27 [facility] (Rec: 10/06/20 12:02 [facility] [id number]) OT Summary Assessment and Plan Potential Rehabilitation Potential Fair Analytic Complexity at Evaluation Moderate Summary OT Impairments Strength,Balance,Coordination, Functional Cognition, Functional Mobility,Self- Feeding,Grooming,Dressing, Toileting,Bathing,Toilet Transfers,Shower Transfers, Activity Tolerance Progress Towards Goals Slow Progress due to Medical Issues,Slow Progress due to Activity Tolerance,Slow Progress due to Cognition Assessment Summary Pt MOD complexity and here due to UTI and encephalopathy. Prior pt was at [facility] and needing limited one person assist for needs. Pt now needing extensive assist for all AdL's and two person assist for transfer , otherwise use of vance lift at this time. Pt has poor awareness of midline at this time. Pt needing cues to bring her feet back underneath her when trying to come to stand. Goals Self-Feeding Goal Standby Assistance Grooming Goal Standby Assistance Dressing Goal Moderate Assistance Toileting Goal Moderate Assistance Bathing Goal Moderate Assistance Toilet Transfer Goal Minimal Assistance Shower Transfer Goal Minimal Assistance Days to Meet Goals 20 Frequency of Treatment Frequency Of Treatment Once a Day Treatment Plan OT Treatment Plan ADL Training,Functional Cognition Training,Functional Mobility,Patient/Family Education,Discharge Planning Other Treatment Recommendations and Next Transfer with FWW MODA X 2 to Treatment Focus BSC. Discharge Recommendations OT Discharge Recommendations SNF Rehab Home Equipment Needs Defer to SNF. Transportation Needs at Discharge Wheelchair/Cabulance
--- NOTE | 2020-10-06 10:27 | PC.NURSE ---
Day shift: Pt's dressing changed at approx 1030 (10/06/2020). There are pictures in Pt's chart. Changed dressing and replaced dressing with what was removed. Pt tolerated well. Pt sitting in chair now after working with OT. Chair alarm is on and call light in reach. Pt remain confused but does answer some questions correctly. Door to room open.
--- NOTE | 2020-10-06 10:40 | PC.NURSE ---
Day shift: Pt tolerated dressing changes well. Both wounds look identical to the pictures in Pt's chart. Dressings are labeled per protocol.
[2020-10-06 12:08] LABS: COVID19 -Nasal RAPID Negative (Negative)
--- NOTE | 2020-10-06 12:22 | P.PN_ITS ---
Subjective Subjective Date Patient Seen: 10/06/20 Interval history: The patient is a pleasant but slightly confused 80-year-old female who was admitted to the hospital for elevated white count , acute encephalopathy, acute kidney injury in the setting of ESBL urinary tract infection. The patient had her antibiotics changed from ertapenem to meropenem. Her white count has improved. Her PICC line has been removed and cultures to date are negative. Repeat urine and blood cultures are negative. The patient is awake and alert. She has no specific complaints. She denies shortness of breath. She denies any hallucination Exam Vital Signs (past 8 hours): - 10/06/20 05:14 10/06/20 08:35 Temperature 98.8 F 98.2 F Pulse Rate 68 62 Respiratory Rate 16 16 Blood Pressure 124/59 L 115/50 L Pulse Oximetry 99 99 Oxygen Delivery Method Room Air Oxygen Flow Rate 0 Narrative Exam Narrative: Pleasant elderly female in no obvious distress Lungs: Decreased breath sounds with occasional crackles bilaterally Cardiac exam: Regular rate and rhythm normal S1-S2 with a 2/6 systolic ejection Abdomen: Soft nontender nondistended Extremities: No edema Objective Labs Result Diagrams: 10/06/20 04:41 10/06/20 04:41 Labs: Laboratory Results - last 24 hr 10/06/20 10/06/20 10/06/20 04:41 04:41 04:41 WBC 7.0 RBC 2.88 L Hgb 8.8 L Hct 26.4 L MCV 91.8 MCH 30.7 MCHC 33.4 RDW 13.6 Plt Count 165 Neut % (Auto) 74.5 Lymph % (Auto) 14.1 L [place] % (Auto) 5.0 Eos % (Auto) 5.9 H Baso % (Auto) 0.5 Neut # (Auto) 5200 Lymph # (Auto) 1000 L [place] # (Auto) 400 Eos # (Auto) 400 Baso # (Auto) 0 Sodium 140 Potassium 3.9 Chloride 113 H Carbon Dioxide 24 BUN 33 H Creatinine 1.22 H Estimated GFR 42.2 L BUN/Creatinine Ratio 27.0 H Glucose 68 L Calcium 9.0 Magnesium 1.8 Procalcitonin 0.52 H COVID-19 PCR 10/06/20 11:25 WBC RBC Hgb Hct MCV MCH MCHC RDW Plt Count Neut % (Auto) Lymph % (Auto) [place] % (Auto) Eos % (Auto) Baso % (Auto) Neut # (Auto) Lymph # (Auto) [place] # (Auto) Eos # (Auto) Baso # (Auto) Sodium Potassium Chloride Carbon Dioxide BUN Creatinine Estimated GFR BUN/Creatinine Ratio Glucose Calcium Magnesium Procalcitonin COVID-19 PCR Negative [facility] Medical History (Updated 10/03/20 @ 22:43 by Winsome Green [facility]) Acute UTI Anemia CKD (chronic kidney disease) stage 4, GFR 15-29 ml/min Diabetes Diabetes type 2, controlled Hyperlipidemia Hypertension Insulin dependent diabetes mellitus Obesity (BMI 30.0-34.9) Pressure ulcer of right lower extremity Pressure ulcer of sacral region Unspecified dementia without behavioral disturbance Family History (Updated 10/03/20 @ 22:46 by [facility] Brother No problems noted. Brother No problems noted. Social History household members: children Assessment & Plan Assessment & Plan narrative: The Patient is an 80-year-old female with a past medical history significant for CAD, PAD, hypertension, hyperlipidemia, diabetes mellitus type II, insulin using, CKD, and dementia who presented to ED from assisted facility with increasing confusion and leukocytosis on outpatient labs. 1. ESBL Klebsiella UTI, present on admission. Resolving. -Patient was diagnosed outpatient with ESBL Klebsilella UTI by irine culture 09/22 and started treatment with ertapenem on 09/25 to complete 14 days total (c ompleted 7 out of 14). Previous klebsiella UTI which was not ESBL on 08/11 at [facility]. -Patient presented with increasing confusion and elevated WBC and procalcitonin. Initial WBC 11.9 and procalictonin 3.96. WBC normalized now 6.2 and procalcitonin trending down now 1.10. Continue to monitor WBC and procalcitonin daily. -Repeat urine and blood cultures preliminarily have no growth. Picc line removed and tip cultured without growth. -Switched ertapenem to renally dosed meropenem 1 g every 12 hours as less propensity to cause confusion per ID. - procalcitonin .52 ( almost normal), no fever, normal WBC -Given negative urine/blood/catheter tip cultures, will complete antibiotics for 24 hours. Will di/c and anticipate discharge to SNF off all antibiotics. 2. Acute metabolic encephalopathy, in setting of dementia without behavioral disturbance, present on admission. Acute metabolic encephalopathy resolving. -Acute delerium from UTI, dehydration and etrapenem and treated as above and below. Concern for hypoglycemia with numerous oral antihyperglycemics and insulin which could precipitate confusion.Patient has chronic mild to moderate dementia at baseline. GCS 14. -CT brain without contrast did not demonstrate stroke, hemorrhage or mass. -Continue to reorient and redirect frequently. -Patient was acutely delerious with hallucinations (auditory and visual) which have resolved with only mild intermittent confusion. Patients son and DPBREN Reagan would like infection and dehydration treated without aggressive medical interventions pursued and patient to be kept comfortable. Discussed CT findings and severe systemic atherosclerosis with stenosis of right renal artery, celiac and SMA artery and possibility for viscus infarction at anytime, as well as, appropriateness of hospice which he is open to. Started low dose seroquel 12.5 mg daily at bedtime. -Still confused, no visble hallucinations at this time. By report from Physical Therapy patient was hallucinating earlier today. 3. TAMI secondary to UTI and dehydration, in setting of chronic polycystic kidney disease, unknown stage likely 3, present on admission. TAMI resolving. -Initial creatinine 1.87 and BUN 61 with CrCl 15.5. Baseline creatinine unknown. Previous history of TAMI on 08/23 with hospitalization at [facility] in which creatinine was 2.41. Creatinine improved with IV fluid hydration now 1.50 and may be close to baseline it is unclear. -CT KUB demonstrated polycystic kidney disease with no evidence of hydrone phrosis or obstructive uropathy. Upon visualization of KUB images patient had noted significant bladder distension and Johnson catheter was placed with immediate 700 cc of UOP. -Avoid nephrotoxic agents and renally dose medications. Held lisinopril. Discontinued furosemide as patient is high risk of dehydration with dementia and this is second hospitalization in 1 month. -Discontinued IV fluids with NS at 100 mL/hr as patient appears adequately hydrated and encourage PO intake of fluids. -Continue to monitor creatinine daily. -Creatinine 1.22 today continues to improve 4. Diabetes mellitus type 2, insulin using, chronic, present on admission. Stable. -Hemoglobin A1C 5.9% indicative of excellent glycemic control and in range of prediabetes. Concern for hypoglycemia with numerous oral antihyperglycemics and insulin which could precipitate confusion. -Held oral anti hyperglycemics. -Continue ACHS blood glucose checks and medium dose correctional scale insulin. -patient has been hypoglycemic in the am with blood sugars of 69 this morning, will decrease lantus as her oral intake is poor. -Continue dyspahgia mechanical with heart health/carbohydrate consistent diet. 5. Coronary artery disease and peripheral arterial disease, chronic, present on admission. Stable. -Patient has two chronic non-healing venous ulcers on right lower extremity which she has been followed by wound care. Continue nursing wound care with irrigation and wet to dry dressing change daily and as needed. 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 -Continue aspirin 81 mg daily, switched home lovastatin to atorvastatin 40 mg daily at bedtime as more effective and higher potency with less adverse effects, and metoprolol tartrate 50 mg twice daily. -Continue physcial and occupational therapy evaluation and treatment. 6. Obesity, chronic, present on admission. Stable. -BMI 30.6. -Patient has a much higher risk for medical or surgical complications due to her morbid obesity it increases the chances of poor outcomes and recovery from infections or surgery. -Consulted dietitian we appreciate her time and recommendations. 7. Normocytic iron deficiency anemia, chronic, present on admission. Stable. -Initial hemoglobin 10.7. Hemoglobin trending down now 10.0 likely due to dilution from IV fluids. -Continue home ferrous sulfate 325 mg daily and vitamin-D 50 mcg daily. 8. Hypertension, chronic, present on admission. Stable. -Held lisinopril due to TAMI. Continue home metoprolol tartrate 50 mg twice daily. 9. Constipation, acute on chronic, present on admission. Resolving. -Patient has heavy stool burden on CT KUB. -Continue bowel regimen with colace 100 mg twice daily, Miralax 17 g daily and as needed suppository for persitent constipation.
[2020-10-06] MEDS: INSULIN ASPART 100 UNIT/ML INSULN PEN SUBCUT ×2 (12:58→16:56)
--- NOTE | 2020-10-06 14:15 | PT.IPTN ---
Physical Therapy Treatment Note M2 PT-IP Current Condition Start: 10/04/20 12:38 Freq: NEEDED Status: Active Protocol: Document 10/04/20 12:38 AMH (Rec: 10/04/20 13:01 AMH [id number]) Physical Therapy Current Condition Current Condition Evaluation Date 10/04/20 Treatment Diagnosis UTI, increasing confusion, chronic kidney disease stage 4 Weight Bearing Status Weight Bearing Status Full Weight Bearing M3 PT-IP Subjective Start: 10/04/20 12:38 Freq: NEEDED Status: Active Protocol: Document 10/06/20 13:56 CLB (Rec: 10/06/20 16:01 CLB [id number]) Subjective Physical Therapy Visit Type Type Treatment Note Visit Start Time 13:56 Visit Stop Time 14:15 Total Visit Minutes 19 Number of SUPERVISOR GRIPS Visits 1 Physical Therapy Visit Comments Patient Comments Pt is awake and willing to work with therapy. Therapy Pain Assessment Pain Present Pain Present Denied Pain M4 PT-IP Mobility and Gait Start: 10/04/20 12:38 Freq: NEEDED Status: Active Protocol: Document 10/06/20 13:56 CLB (Rec: 10/06/20 16:01 CLB [id number]) PT-Transfer Assessment Sit to and From Stand Sit to and from Stand Moderate Assistance,2 Person Assistance,Use of Upper Extremities Equipment Transfer Assistive Device Gait Belt,Front Wheeled Walker Orthotic/Prosthetic Devices or Brace: No Comments Mobility Comments Pt willing to try to stand. Pt required Max A to scoot forward in chair with cues to lean forward and use of draw sheet and keep hands on arms of chair. Pt then required Mod A x2 for sit-stand x4 with max verbal and tactile cues for hand and foot placement and leaning forward. Pt required Max A x2 to scoot back in chair. Pt then perfomred seated knee flx/ext and ankle pumps. Pt not able to follow commands for quad sets but was able to follow commands for ankle pumps and seated knee flx/ext. Pt left in chair with alarm on, call light and all other needs within reach. Gait Assessment Comments Gait Comments See mobility comments. M5 PT-IP Objective Assessments Start: 10/04/20 12:38 Freq: NEEDED Status: Active Protocol: Document 10/04/20 12:38 AMH (Rec: 10/04/20 13:01 AMH [id number]) Orientation Orientation/Cognition Level of Alertness Confusional State Orientation Name Safety Awareness Decreased Safety Awareness Comments pt very confused as to where she is and why and unable to follow commands. Gross Range of Motion Upper Extremity ROM Assessment Within Functional Limits Lower Extremity ROM Assessment Within Functional Limits Strength Lower Extremity Strength Assessment Bilaterally Impaired Comments Strength Comments right LE has two wounds that are covered, left foot has a severe bunion M6 PT-IP Treatment Start: 10/04/20 12:38 Freq: NEEDED Status: Active Protocol: Document 10/06/20 13:56 CLB (Rec: 10/06/20 16:01 CLB [id number]) Physical Therapy Treatment Exercises Exercises Ankle Pumps,Seated Knee Flexion/Extension Other Treatments Other Treatment Performed attempted quad set but pt was unable to follow commands to perform exercise. M7 PT-IP Assessment and Plan Start: 10/04/20 12:38 Freq: NEEDED Status: Active Protocol: Document 10/06/20 13:56 CLB (Rec: 10/06/20 16:01 CLB [id number]) PT Summary Assessment and Plan Potential Rehabilitation Potential Fair Status of Condition at Evaluation Stable Summary Impairments ROM,Strength,Balance,Cognition ,Bed Mobility,Transfers,Gait, Activity Tolerance Assessment Summary Pt unable to ambulate due to BLE weakness and requires Mod A x2 for sit-stand, Pt improving with seated balance with cues to lean forward. Pt performed sit<>stand x4 but was unable to remain in standing for more than a few seconds. Pt would benefit from return to SNF at discharge before possible return to [facility]. Goals Bed Mobility Goal Minimal Assistance Transfer Goal Moderate Assistance Gait Goal Minimal Assistance Days to Meet Goals 4 Frequency of Treatment Frequency Of Treatment Once a Day Treatment Plan Physical Therapy Treatment Plan Bed Mobility Training,Transfer Training,Gait Training, Therapeutic Exercise,Balance Retraining Recommendations To Nursing Amount of Assist Needed 2 Person Assist,Mechanical Lift Discharge Recommendations PT Discharge Recommendations SNF Rehab Transportation Needs at Discharge Wheelchair/Cabulance
[2020-10-06] MEDS: SODIUM CHLORIDE 0.9% 1,000 ML 100 ML IV (15:25)
[2020-10-06] MEDS: ATORVASTATIN 20 MG TABLET 40 MG PO (20:36)
[2020-10-06] MEDS: QUETIAPINE 25 MG TABLET 12.5 MG PO (20:37)
[2020-10-06] MEDS: INSULIN GLARGINE 100 UNIT/ML 3ML PEN 20 UNIT SUBCUT (20:41)
--- NOTE | 2020-10-06 23:27 | PC.NURSE ---
confused, hallucinating, 98%RA. unable to void, bladder scan 63cc, NS bolus infused at 100cc/hr, then patient voided twice-incontinent. pt had 1 medium BM-soft, she used the bedpan. 2pa-vance lift.
--- NOTE | 2020-10-07 03:40 | PC.NURSE ---
Addendum entered by Abbey Hernandez R.N. 10/07/20 06:52: Lab report blood glucose = 67. Pt alert and oriented, reports no symptoms. 4 oz apple juice given. 15 minute recheck BG = 92. Pt states that this often happens at home and she can usually tell when her BG is on the lower end, I just drink some orange juice and I'm fine. Addendum entered by Abbey Hernandez R.N. 10/07/20 06:49: Recheck at 0630, pt conversant, oriented x4 does not appear to be actively hallucinating but is picking at an unknown object on her hand. Original Note: Pt oriented to self only. Appears to be hallucinating, reaching for objects, talking to someone in room. Straight cath removed 975 mL at 0340 after bladder scan of 850mL. Pt tolerated well and stated, I think I can go to sleep now. Q2 position changes done.
[2020-10-07 06:00] VITALS: BP 152/92; PULSE 63; RESP 18; TEMP 36.9; O2SAT 95
[2020-10-07 06:05] LABS: BUN Creatinine Ratio 27.2 (6-22); Blood Urea Nitrogen 28 mg/dL (7-17); Calcium 9.1 mg/dL (8.4-10.2); Carbon Dioxide 25 mmol/L (22-32); Chloride 114 mmol/L (98-107); Estimated Glomerular Filt Rate 51.3 mL/min (>60); Glucose 67 mg/dL (80-110); HEMOLYSIS < 15 (0-50); Sodium 141 mmol/L (137-145)
[2020-10-07 06:23] LABS: Procalcitonin 0.21 ng/mL (<0.5)
[2020-10-07 07:59] VITALS: BP 109/42; PULSE 71; RESP 14; TEMP 37.1; O2SAT 96
[2020-10-07] MEDS: DOCUSATE 100 MG CAPSULE PO (09:04)
[2020-10-07] MEDS: HEPARIN 5,000 UNIT/ML VIAL 5000 UNIT SUBCUT (09:04)
[2020-10-07] MEDS: MEROPENEM 1 GM in SODIUM CHLORIDE 0.9% 100 ML 200 ML IV (09:04)
[2020-10-07] MEDS: ASPIRIN EC 81 MG TABLET PO (09:04)
[2020-10-07] MEDS: FERROUS SULFATE 325 MG TABLET PO (09:04)
[2020-10-07] MEDS: polyethylene glycoL 3350 17 GM POWD.PACK PO (09:05)
[2020-10-07] MEDS: METOPROLOL IR 50 MG TABLET PO (09:05)
[2020-10-07] MEDS: SODIUM CHLORIDE 0.9% FLUSH 10 ML IV (09:06)
[2020-10-07] MEDS: CHOLECALCIFEROL (VITAMIN D3) 1,000 UNIT TABLET 1000 UNIT PO (09:07)
[2020-10-07] MEDS: NYSTATIN POWDER 15GM 1 APPLIC TOP (09:07)
--- NOTE | 2020-10-07 10:06 | CM.DPNOTE ---
Faxed to [facility] on 10/07/20 per Stella, Bo burton, [facility], COVID 19. Tarsha Alicea CM Asst.
[2020-10-07 11:02] VITALS: BP 136/69; PULSE 63; RESP 14; TEMP 36.8; O2SAT 96
--- NOTE | 2020-10-07 11:10 | PT.IPTN ---
Current Diagnoses Metabolic encephalopathy (10/04/20) Physical Therapy Treatment Note M2 PT-IP Current Condition Start: 10/04/20 12:38 Freq: NEEDED Status: Active Protocol: Document 10/04/20 12:38 AMH (Rec: 10/04/20 13:01 AMH [id number]) Physical Therapy Current Condition Current Condition Evaluation Date 10/04/20 Treatment Diagnosis UTI, increasing confusion, chronic kidney disease stage 4 Weight Bearing Status Weight Bearing Status Full Weight Bearing M3 PT-IP Subjective Start: 10/04/20 12:38 Freq: NEEDED Status: Active Protocol: Document 10/07/20 10:35 SP (Rec: 10/07/20 11:47 SP [email or web address]) Subjective Physical Therapy Visit Type Type Treatment Note Visit Start Time 10:35 Visit Stop Time 11:10 Total Visit Minutes 35 Notes Co treatment with GERMAN Cervantes and SINCERE White provided physical assist and cuing education directioning during treatment. Number of BATTERY CONTAINER FINISHING HAND Visits 2 Physical Therapy Visit Comments Patient Comments Pt was awake and willing to work with therapy. Therapy Pain Assessment Pain Present Pain Present Denied Pain M4 PT-IP Mobility and Gait Start: 10/04/20 12:38 Freq: NEEDED Status: Active Protocol: Document 10/07/20 10:35 SP (Rec: 10/07/20 11:47 SP [email or web address]) PT-Bed Mobility Assessment Supine to Sit Supine to Sit Maximum Assistance,1 Person Assistance,Head of Bed Elevated,Bedrails Scooting Scooting to Edge of Bed Maximum Assistance PT-Transfer Assessment Sit to and From Stand Sit to and from Stand Moderate Assistance,Maximum Assistance,1 Person Assistance ,2 Person Assistance,Use of Upper Extremities Equipment Transfer Assistive Device Gait Belt,Front Wheeled Walker Orthotic/Prosthetic Devices or Brace: No Transfers Transfer Destination Bed,Chair Transfer Technique Stand Step Pivot Transfer Ability Level of Assist 2 Person Assistance,Use of Upper Extremities Comments Mobility Comments Pt elevated supine in bed when arrived. Pt increased confusion during tx today, seeing object not there out window (birdfeeder) and sitting in sugar instead of her bed fitted sheet to name a few. Elevated supine>sitting with [place] bed rail and cuing for hand placement on bed for self suppport Mod- Max of 1. Scoot to EOB Mod- Max A of 1-2 person for trunk support and LE/hip repositioning with Max cuing for motor planning and retro leaning. Pt required Mod A and Max A cuing for BUE support on bed for self facilitation forward trunk flexion to decrease retro lean . Sit> stand at EOB x2 assessments, requried [place] for hand transitioning to FWW and Max A of 2-3 persons stood approx 5 sec max cuing for forward trunk COG over FOUZIA and support at anterior BLE to decrease forward slide and advance january. Continued sitting support and contact cuing for LE position under her before 2nd attempt. Sit > stand Mod A of 2 with cuing for upright posture, LE stationary and good hand placement, pt able to forward and L lateral side stepping uing FWW Mod A of 3 person for safety, the last 8 inches patient proceeded to retro lean and sit requiring increase Max A of 3 persons to complete transfer to chair including blocking BLE from front to decreased sliding out from underneath her and Max cuing for upright standing but unable to comprehend and follow through. Pt required assist to scoot back in chair Max A of 2 persons for proper and safe sitting alignment with use of transfer pad and draw sheet. Provided pillows under B LE for safety alignment and comfort support while reclined inchair. Chair alarm donned, call light at side of lap with all needs in reach and OT was inroom finishing up tx when BATTERY CONTAINER FINISHING HAND/SPTA left. BATTERY CONTAINER FINISHING HAND reported mobility and assist required to nurse after left room, recommending safety belted w/c or stretcher for safety transportation if D/C plans are given today. Gait Assessment Gait Gait Assistance Required: Maximum Assistance,1 Person Assist,2 Person Assist Distance (Feet) 3 Able to Maintain Weight Bearing Status Yes During Gait Assistive Devices Assistive Device Gait Belt,Front Wheeled Walker Orthotic/Prosthetic Devices or Brace: No Gait Deviations General Gait Pattern Antalgic,Decreased Stride Length,Decreased Feet Clearance,Festinating,Lateral Trunk Lean,Narrow Based Gait, Step-to Gait Factors Limiting Gait Function Factors Limiting Gait Function Decreased Activity Tolerance, Decreased Strength,Difficulty Following Directions, Incoordination,Poor Balance, Poor Safety Awareness Comments Gait Comments see mobility comments PT-Balance Assessment Sitting Balance and Reactions Static Sitting Balance Ability Poor Dynamic Sitting Balance Ability Poor Standing Balance and Reactions Static Standing Balance Ability Poor Dynamic Standing Balance Ability Poor M5 PT-IP Objective Assessments Start: 10/04/20 12:38 Freq: NEEDED Status: Active Protocol: Document 10/04/20 12:38 AMH (Rec: 10/04/20 13:01 AMH [id number]) Orientation Orientation/Cognition Level of Alertness Confusional State Orientation Name Safety Awareness Decreased Safety Awareness Comments pt very confused as to where she is and why and unable to follow commands. Gross Range of Motion Upper Extremity ROM Assessment Within Functional Limits Lower Extremity ROM Assessment Within Functional Limits Strength Lower Extremity Strength Assessment Bilaterally Impaired Comments Strength Comments right LE has two wounds that are covered, left foot has a severe bunion M6 PT-IP Treatment Start: 10/04/20 12:38 Freq: NEEDED Status: Active Protocol: Document 10/07/20 10:35 SP (Rec: 10/07/20 11:47 SP [email or web address]) Physical Therapy Treatment Exercises Exercises Ankle Pumps Other Treatments Other Treatment Performed Pt had difficulty follow directions with stationary foot placement to stand noted marching with retro lean initially Max A of 2-3 persons and max cuing for upright posture, then standing march at EOB using FWW Mod A of 2. M7 PT-IP Assessment and Plan Start: 10/04/20 12:38 Freq: NEEDED Status: Active Protocol: Document 10/07/20 10:35 SP (Rec: 10/07/20 11:47 SP [id number]) PT Summary Assessment and Plan Potential Rehabilitation Potential Fair Status of Condition at Evaluation Stable Summary Impairments ROM,Strength,Balance,Cognition ,Bed Mobility,Transfers,Gait, Activity Tolerance Assessment Summary Pt required Max A of 1-2 pp bed mobility, Mod- Max A x3 sit<> stand and forward, lateral gait step to patterning using FWW bed to chair with Max x3 last 8 inches to chair to complete sit into chair after excessive retro lean and LE forward slide. PT continues to recommend Jon lift for nursing mobility and belted w/ c or stretcher for safety transportation upon Dc at this time. Recommending SNF at this time to increase strength and safety education to increase functional mobility. Goals Bed Mobility Goal Minimal Assistance Transfer Goal Moderate Assistance Gait Goal Minimal Assistance Days to Meet Goals 4 Frequency of Treatment Frequency Of Treatment Once a Day Treatment Plan Physical Therapy Treatment Plan Bed Mobility Training,Transfer Training,Gait Training, Therapeutic Exercise,Balance Retraining Recommendations To Nursing Amount of Assist Needed 3 or More Person Assist, Mechanical Lift Discharge Recommendations PT Discharge Recommendations SNF Rehab Transportation Needs at Discharge Wheelchair/Cabulance,Stretcher /Ambulance
--- NOTE | 2020-10-07 11:14 | OT.IP.TRT ---
Current Diagnoses Metabolic encephalopathy (10/04/20) Occupational Therapy Treatment Note M2 OT-IP Current Condition Start: 10/06/20 11:27 Freq: Status: Active Protocol: Document 10/06/20 11:27 [facility] (Rec: 10/06/20 12:02 [facility] [id number]) Occupational Therapy Current Condition Current Condition Evaluation Date 10/06/20 Treatment Diagnosis Metabolic encephalopathy/UTI Diagnosis Onset Date 10/03/20 M3 OT- IP Subjective and Pain Start: 10/06/20 11:27 Freq: Status: Active Protocol: Document 10/07/20 12:16 [facility] (Rec: 10/07/20 12:31 [facility] [id number]) OT- Subjective Occupational Therapy Visit Type Type Treatment Note Visit Start Time 10:28 Visit Stop Time 11:14 Total Visit Minutes 46 Occupational Therapy Visit Comments Patient Comments Pt agreeing to try to get up. OT Pain Assessment Pain When Pain Assessed At Rest Pain Present Pain Present Denied Pain M4 OT- IP ADL's Start: 10/06/20 11:27 Freq: Status: Active Protocol: Document 10/07/20 12:16 [facility] (Rec: 10/07/20 12:31 [facility] [id number]) OT ADL-Grooming General Evaluation Grooming Ability Maximum Assistance Areas Needing Assistance Retrieving/Set-up of Grooming Items,Combing/Brushing Hair, Face Washing Comments OT Grooming Comments Pt needing assist to help place the wash cloth in her hand initially and then needing assist for completeness. Pt needing assist to swab her mouth out. OT ADL-Oral Care General Eval Oral Care Ability Total Assistance. pt not able to hold or grasp the mouth swab. OT ADL-Dressing General Eval Lower Body Dressing Ability Total Assistance Comments OT Dressing Comments Total assist for all LB dressing needs. OT ADL-Toileting Comments OT Toileting Comments Total assist as carrillo in place . OT ADL-Bathing Comments OT Bathing Comments Not performed. M5 OT- IP IADL's Start: 10/06/20 11:27 Freq: Status: Active Protocol: Document 10/06/20 11:27 [facility] (Rec: 10/06/20 12:02 [facility] [id number]) OT-Instrumental Activities of Daily Living Home Safety Awareness Awareness of Need for Assistance at Home Decreased Awareness Ability to Problem Solve Emergency Unable to Problem Solve Situations Medication Management Medication Management Caregiver Administers Money Management Money Management Caregiver Provides Assistance Meal Preparation Meal Preparation Caregiver Provides Assist Supervisor Hospitality House Supervisor Hospitality House Caregiver Provides Assist Driving Driving Caregiver Provides Assist M6 OT- IP Functional Cognition Start: 10/06/20 11:27 Freq: Status: Active Protocol: Document 10/07/20 12:16 [facility] (Rec: 10/07/20 12:31 [facility] [id number]) Cognitive Factors Limiting Selfcare Function Cognitive Ability Level of Alertness Alert,Confusional State Attention Span Ability Capable of Focused Attention, Unable to Focus,Unable to Sustain Attention Ability to Follow Commands Able to Follow One Step Commands with Increased Time, Able to Follow One Step Commands with Repetition Memory Description Immediate Impaired,Short Term Impaired,Pressure Test Operator Impaired, Working Impaired Safety Awareness Underestimates Need for Assistance Problem Solving Ability Unable to Identify Errors, Needs Assist to Identify Solutions Cognitive Comments Cognitive Assessment Comments Pt mainly just orientated to her name at this time. Pt needing constant orientation to remind her that she in in the hospital. M7 OT- IP Mobility and Balance Start: 10/06/20 11:27 Freq: Status: Active Protocol: Document 10/07/20 12:16 [facility] (Rec: 10/07/20 12:31 [facility] [id number]) OT- Bed Mobility Assessment Rolling Type of Rolling Roll to Left Level of Assistance Maximum Assistance,1 Person Assistance OT-Transfer Assessment Sit to and From Stand Sit to and from Stand Maximum Assistance,2 Person Assistance Transfers Transfer Ability Maximum Assistance,Total Assistance,2 Person Assistance Technique Transfer Destination Bed,Chair Transfer Technique Stand Step Pivot Devices Transfer Assistive Devices Gait Belt,Front Wheeled Walker Comments Mobility Comments Pt still tends to sit into posterior tilt and not able to keep her feet underneath her and needing assist to block her feet. Pt needing from MAX A x3 to MOD a x2 to stand to FWW. Attempted to take a few steps with FWW and then pt's legs buckling and sliding out in front of her. Therapist had to help guide her hip closer to the recliner and then able to ease her down to therapists' knees and then able to bust her up the recliner with total assist x3. Nursing notified. OT- Gait Assessment Comments Gait Ability Comments NOt at this time. OT- Balance Assessment Sitting Balance and Reactions Static Sitting Balance Ability Poor Dynamic Sitting Balance Ability Poor Standing Balance and Reactions Static Standing Balance Ability Poor M8 OT- IP Objective Assessments Start: 10/06/20 11:27 Freq: Status: Active Protocol: Document 10/06/20 11:27 [facility] (Rec: 10/06/20 12:02 [facility] [id number]) OT Gross Range of Motion Upper Extremity Range of Motion Assessment Bilaterally Impaired ROM Impairments Impaired at end ranges. OT Strength Comments Strength Comments NOt able to fully assess as pt not following commands consistently but at least 3-/5 as able to assist for mobility needs. OT- Coordination Assessment Comments Coordination Comments Pt's hands swollen R> L and arthritic changes noted. OT-Muscle Tone Assessment Muscle Tone WNL Yes OT Sensation Assessment Comments Summary Comments Intact but having difficulty with word finding of the body parts on the left arm. Edema Edema Present Edema Comments Right hand swollen greater than left hand. M9 OT- IP Assessment and Plan Start: 10/06/20 11:27 Freq: Status: Active Protocol: Document 10/07/20 12:16 [facility] (Rec: 10/07/20 12:31 [facility] [id number]) OT Summary Assessment and Plan Potential Rehabilitation Potential Fair Analytic Complexity at Evaluation Moderate Summary OT Impairments Strength,Balance,Coordination, Functional Cognition, Functional Mobility,Self- Feeding,Grooming,Dressing, Toileting,Bathing,Toilet Transfers,Shower Transfers, Activity Tolerance Progress Towards Goals Slow Progress due to Medical Issues,Slow Progress due to Activity Tolerance,Slow Progress due to Cognition Assessment Summary Pt still confused and mainly orientated to name but agreeable to participate in therapy. Pt needing Max vc for re-orientation the pt as she feels that she is at home at [facility] or that her /son are going to come and get her. Pt needing extensive assist for all needs . Pt would benefit form skilled rehab to continue to maximize her independence with all adl and mobility needs. Goals Self-Feeding Goal Standby Assistance Grooming Goal Standby Assistance Dressing Goal Moderate Assistance Toileting Goal Moderate Assistance Bathing Goal Moderate Assistance Toilet Transfer Goal Minimal Assistance Shower Transfer Goal Minimal Assistance Days to Meet Goals 20 Frequency of Treatment Frequency Of Treatment Once a Day Treatment Plan OT Treatment Plan ADL Training,Functional Cognition Training,Functional Mobility,Patient/Family Education,Discharge Planning Other Treatment Recommendations and Next Transfer with FWW MAXA X 2 to Treatment Focus [facility]. Discharge Recommendations OT Discharge Recommendations SNF Rehab Home Equipment Needs Defer to SNF. Transportation Needs at Discharge Wheelchair/Cabulance
--- NOTE | 2020-10-07 13:17 | CM.DPNOTE ---
Faxed FS, PASRR, neg. Covid result, H&P, and PN and med list to [facility] and [facility] per Stella on 10/07/20 (Pt. will be going to [employer]. Called [facility] transport and spoke to February,who will pick her up between [phone]. Tarsha Alicea CM Asst.
--- NOTE | 2020-10-07 13:20 | P.DS_ITS ---
History of Present Illness History of Present Illness Date Patient Seen: 10/04/20 Chief complaint: UTI not getting better Narrative: Written by Winsome ESPINOZA: Patient is an 80-year-old female who presented to Emergency Room following [facility] lab on 10/02/20 WBC 15 and increased confusion. In ER labs today: WBC 11.1, creatinine 1.8, procalcitonin 3.96, troponin 0.036. CXR in ER demonstrated increased opacity at the left lung base, UA was negative sent for culture, KUB- findings consistent with polycystic kidney disease. No evidence of hydronephrosis or obstructive uropathy. Diverticulosis without evidence of diverticulitis. Patient had most recently been in [facility] from 08/23 to 08/27/2020 for metabolic ence phalopathy, dehydration with elevated creatinine of 2.41 up from 1.29 on 08/11, an indeterminate troponin of 0.079 , acute kidney injury with worsening renal function GFR on 08/11 (39),08/23 (18). MRSA, ESBL (UTI), and altered mental status. And prior to that in [facility] from 08/11-08/17/2020 for Klebsiella UTI sepsis. had been residing at [facility], following the August 23- 2019 hospitalization was moved to [facility]. At [facility] patient had a PICC line placed and received Ertapenem. She presented to emergency room today with continued worsening confusion, on ER visit 08/23 her son reported that her memory loss was only 2-weeks-old at that time, Dr. rCowe noted references to a baseline cognitive dysfunction in prior chart. Upon exam patient is remarkably confused, she is orientated to her name and that she is in the hospital but stated the year was 1858, and was easily distracted was unable to perform in MOCA. And due to patient's confusion was unable to assist in family medical history, patient medical history or ROS. Patient has a medical history of type 2 diabetes insulin dependent, chronic kidney disease stage 4,essential hypertension, hyperlipidemia, anemia, coronary artery disease, unspecified dementia, and obesity Discharge Providers Provider Date of admission: 10/04/20 10:09 Discharge Date: 10/07/20 Primary care physician: ALEXIS Gómez Consults: 10/03/20 20:11 Consult to Dietitian, Adult Routine Comment: Reason For Exam: BMI 33.2, DM 2 insluin dependent Consult to Discharge Planning Routine Comment: Consult to Physical Therapy Evaluate & Treat Comment: Physician Instructions: Evaluate and Treat 10/04/20 10:57 Consult to Occupational Therapy Evaluate & Treat Comment: Physician Instructions: Evaluate and treat Consult to Physical Therapy Evaluate & Treat Comment: Physician Instructions: Evaluate and Treat 10/04/20 23:48 Consult to Speech Therapy Evaluate & Treat Comment: Swallow screen; Pt coughed with pill/pudding combo Physician Instructions: Evaluate and treat Discharge provider: Nadeen Navas DO Summary Hospital Course Discharge Diagnosis: 1. ESBL Klebsiella UTI, secondary to urinary retention, present on admission. Resolved. 2. Progressive vascular dementia with behavioral disturbance, acute on chronic, present on admission. Acute metabolic encephalopathy ruled out. 3. Acute kidney injury, secondary to UTI, dehydration in setting of chronic dementia, and chronic urinary retention, on chronic polycystic kidney disease, unknown stage likely 3 or 4, present on admission. TAMI resolved. 4. Diabetes mellitus type 2, insulin using, chronic, present on admission. Stable. 5. Advanced ASCVD including CAD and PAD, chronic, present on admission. Stable. 6. Obesity, chronic, present on admission. Stable. 7. Chronic iron deficiency anemia, present on admission. Stable. 8. Hypertension, chronic, present on admission. Stable. 9. Constipation, acute on chronic, present on admission. Resolved. Hospital Course: Tram Reagan is an 80-year-old female with a past medical history significant for CAD, PAD, hypertension, hyperlipidemia, diabetes mellitus type II, insulin using, CKD, and dementia who presented to ED from senior living facility with increasing confusion and leukocytosis on outpatient labs. 1. ESBL Klebsiella UTI, secondary to urinary retention, present on admission. Resolved. -Patient was diagnosed outpatient with ESBL Klebsilella UTI by urine culture and started treatment with ertapenem on 09/25 to completed 7 days prior to admission. Previous Klebsiella UTI which was not ESBL on 08/11 at [facility]. -Patient presented with confusion and elevated WBC and procalcitonin. Initial WBC 11.9 and procalictonin 3.96. WBC normalized now 7.0 and procalcitonin negative at 0.21. Continued to monitor WBC and procalcitonin daily. -Repeat urine and blood cultures had no growth. Picc line removed and tip cultured without growth. -Switched ertapenem to renally dosed meropenem 1 g every 12 hours as meropenem has less propensity to cause confusion per ID and completed 12 day course of antibiotics total with resolution of infection markers. 2. Progressive vascular dementia with behavioral disturbance, acute on chronic, present on admission. Acute metabolic encephalopathy ruled out. -Treated UTI, dehydration and TAMI as above and below without resolution of confusion and hallucinations. Patient undoubtedly vascular dementia and low perfusion state of brain with frontal lobe impairment. -CT brain without contrast did not demonstrate stroke, hemorrhage or mass. Previous MRI stroke protocol on 08/13 demonstrated brain parenchymal volume loss and chronic small vessel ischemic changes. -Continued to reorient and redirect frequently. -Patient pleasantly demented with with hallucinations (auditory and visual) and confusion. Patients son and DPBREN Reagan would like to treat infections if they arise and dehydration without aggressive medical interventions with the primary goal comfort. Discussed CT chest findings and severe systemic atheros clerosis with severe coronary artery atherosclerosis and stenosis of right renal, celiac and SMA arteries and possibility for organ infarction at anytime, as well as, appropriateness of hospice which he is open to in future. -Started and continued low dose seroquel 12.5 mg daily at bedtime to help with sleep cycle and possibly confusion. 3. Acute kidney injury, secondary to UTI, dehydration in setting of chronic dementia, and chronic urinary retention, on chronic polycystic kidney disease, u nknown stage likely 3 or 4, present on admission. TAMI resolved. -Initial creatinine 1.87 and BUN 61 with CrCl 15.5. Baseline creatinine unknown. Previous history of TAMI on 08/23 with hospitalization at [facility] in which creatinine was 2.41. Creatinine improved with IV fluid hydration now 1.09 with CrCl 30. -CT KUB demonstrated polycystic kidney disease with no evidence of hydronephrosis or obstructive uropathy. Upon visualization of KUB images patient had noted significant bladder distension. -Johnson catheter was placed for urinary retention and later removed with continued urinary retention and Johnson catheter was reinserted. Continue to change Johnson catheter every 3-4 weeks. -Avoided nephrotoxic agents and renally dose medications. Discontinued lisinopril in setting of recurrent TAMI in setting of CKD. Discontinued furosemide as patient is high risk of dehydration with dementia and this is her second hospitalization in 1 month. -Continued IV fluids with NS at 100 mL/hr until adequately hydrated and encouraged PO intake of fluids. Patient likely to have continued dehydration due to progressive advancing dementia as above. -Continued to monitor creatinine daily. 4. Diabetes mellitus type 2, insulin using, chronic, present on admission. Stable. -Hemoglobin A1C 5.9% indicative of excellent glycemic control and in range of prediabetes. Concern for hypoglycemia with numerous oral antihyperglycemics and insulin which could precipitate confusion in setting of dementia with poor PO intake. -Discontinued oral anti hyperglycemics due to risk of hypoglycemia. -Continued ACHS blood glucose checks and medium dose correctional scale insulin. -Continued home Lantus decreased from 25 units at bedtime to 5 units twice daily to continue to treat hyperglycemia but avoid hypoglycemia. -Continued dysphagia mechanical with heart health/carbohydrate consistent diet. 5. Advanced ASCVD including CAD and PAD, chronic, present on admission. Stable. -Patient has two chronic non-healing venous ulcers on right lower extremity which she has been followed by wound care. Continue nursing wound care with irrigation and wet to dry dressing change daily and as needed. 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 -Continued aspirin 81 mg daily, switched home lovastatin to atorvastatin 40 mg daily at bedtime as more effective and higher potency with less adverse effects, and metoprolol tartrate 50 mg twice daily. -Continued physical and occupational therapy evaluation and treatment. Discharged to senior living facility for continued trial of rehabilitation. If patient were to fail rehabilitation would recommend hospice for end of life care. 6. Obesity, chronic, present on admission. Stable. -BMI 30.6. -Patient has a much higher risk for medical or surgical complications due to her morbid obesity it increases the chances of poor outcomes and recovery from infections or surgery. -Consulted dietitian we appreciate her time and recommendations. 7. Chronic iron deficiency anemia, present on admission. Stable. -Initial hemoglobin 10.7. Hemoglobin trended down to 8.6 likely due to dilution from IV fluids and trended back up now 8.8. -Continued home ferrous sulfate 325 mg daily and vitamin-D 50 mcg daily. 8. Hypertension, chronic, present on admission. Stable. -Discontinued lisinopril due to recurrent TAMI on CKD. Continued home metoprolol tartrate 50 mg twice daily. 9. Constipation, acute on chronic, present on admission. Resolved. -Patient had heavy stool burden on CT KUB. -Continued bowel regimen with Colace 100 mg twice daily, Miralax 17 g daily and as needed suppository for persistent constipation. Exam Vital Signs (past 8 hours): - 10/07/20 06:00 10/07/20 07:59 10/07/20 11:02 Temperature 98.5 F 98.8 F 98.3 F Pulse Rate 63 71 63 Respiratory Rate 18 14 14 Blood Pressure 152/92 H 109/42 L 136/69 Pulse Oximetry 95 96 96 Oxygen Delivery Method Room Air Oxygen Flow Rate 0 Narrative Exam Narrative: General: Elderly female lying in bed and in no acute distress, alert and oriented to person only, pleasantly demented with confusion and active hallucinations. HEENT: Normocephalic, atraumatic. External ears without defect. Pupils equal, round, and reactive to light. Anicteric sclerae, moist conjunctivae, and no lid lag. Oropharynx free of erythema and cobble stoning with moist mucosa. Neck: Supple with full range of motion. No jugular venous distension. No lymphadenopathy or thyromegaly. Cardiovascular: Regular rate and rhythm without murmurs, rubs, or gallops appreciated. Pulmonary: Clear to auscultation bilaterally without crackles, wheezes, or rhonchi. Normal respiratory effort with no use of accessory muscles. Abdomen: Soft, bowel sounds present, nontender, nondistended. No hepatosplenomegaly or masses appreciated. Extremities: No clubbing, cyanosis, or edema. Bilateral lower extremities with stasis dermatitis and sclerosis of skin. Two 1 cm nonhealing venous stasis u lcers of distal right lower extremity one medial and one lateral do not appear infected. Generalized weakness. Neurological: Cranial nerves grossly intact. Psychiatric: Alert and oriented to person only. 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 Pleasant. Objective Labs Result Diagrams: 10/06/20 04:41 10/07/20 05:41 Labs: Laboratory Results - last 24 hr 10/07/20 10/07/20 05:41 05:41 Sodium 141 Potassium 4.0 Chloride 114 H Carbon Dioxide 25 BUN 28 H Creatinine 1.03 Estimated GFR 51.3 L BUN/Creatinine Ratio 27.2 H Glucose 67 L Calcium 9.1 Procalcitonin 0.21 PFSH Medical History (Updated 10/03/20 @ 22:43 by [facility] Acute UTI Anemia CKD (chronic kidney disease) stage 4, GFR 15-29 ml/min Diabetes Diabetes type 2, controlled Hyperlipidemia Hypertension Insulin dependent diabetes mellitus Obesity (BMI 30.0-34.9) Pressure ulcer of right lower extremity Pressure ulcer of sacral region Unspecified dementia without behavioral disturbance Family History (Updated 10/03/20 @ 22:46 by [facility]INA [facility]) Brother No problems noted. Brother No problems noted. Social History household members: children Discharge Plan Discharge Plan Patient Disposition: SNF Transfer to: [facility] Under care of provider: director market research Discharge orders & Medications Prescriptions: New quetiapine 25 mg Tablet 12.5 mg PO BEDTIME Qty: 30 RF: 0 atorvastatin [Lipitor] 20 mg Tablet 40 mg PO BEDTIME Qty: 60 RF: 0 polyethylene glycol 3350 17 gram Powder In Packet 17 gm PO DAILY Qty: 30 RF: 0 melatonin 3 mg Tablet 6 mg PO BEDTIME Qty: 30 RF: 0 docusate sodium [DOK] 100 mg Capsule 100 mg PO BID Qty: 60 RF: 0 Lantus Solostar U-100 Insulin 100 unit/mL (3 mL) Insulin Pen 5 unit SUBCUT BID Qty: 15 RF: 0 Continued multivitamin Tablet 1 tab PO DAILY RF: 0 polyvinyl alcohol [Artificial Tears (polyvin alc)] 1.4 % Drops 1 drp OPHTHALMIC (EYE) Q6H RF: 0 ferrous sulfate 325 mg (65 mg iron) Tablet 325 mg PO DAILY RF: 0 metoprolol tartrate 50 mg Tablet 50 mg PO BID RF: 0 aspirin 81 mg Tablet 81 mg PO DAILY RF: 0 nystatin 100,000 unit/gram Powder 1 applic TOPICAL QID RF: 0 Lactobacillus acidophilus [Acidophilus] Capsule 1 cap PO DAILY RF: 0 cholecalciferol (vitamin D3) [Vitamin D3] 50 mcg (2,000 unit) Capsule 50 mcg PO DAILY RF: 0 cranberry 450 mg Tablet 900 mg PO DAILY RF: 0 colchicine 0.6 mg Capsule 0.6 mg PO DAILY PRN (Reason: Gout) RF: 0 Discontinued glipizide 10 mg Tablet 10 mg PO BID RF: 0 lovastatin 40 mg Tablet 80 mg PO QPM RF: 0 furosemide 20 mg Tablet 20 mg PO DAILY RF: 0 glipizide 5 mg Tablet 5 mg PO BID RF: 0 ertapenem 1 gram Recon Soln 1 g IM DAILY RF: 0 insulin glargine 100 unit/mL Cartridge 25 unit SUBCUT QPM RF: 0 lisinopril 20 mg tablet 20 mg PO DAILY RF: 0 Follow up/Referrals: Jeanette Kirby ARNP [Primary Care Provider] - Diet/Activity/Treatments Diet: Carb-consistent/Diabetic, Low-fat, Low-sodium and Low-cholesterol Liquid consistency: Normal/Thin Food texture: Soft Diet comment: Dysphagia mechanical Activity: Activity as tolerated with walker and physical and occupational therapy Catheter: 2-way Johnson Catheter comment: Change Johnson 3-4 weeks [facility] Reason for rehabilitation: Recovery r/t decondition Rehab type: Physical therapy and Occupational therapy Discharge Data Primary Care Provider: Jeanette Kirby
--- NOTE | 2020-10-07 14:21 | PC.NURSE ---
Pt is visiting with Conner Greg at the bedside. Report called to Latosha at [facility] and all information given-no further questions. Pt will be ready for discharge when [facility] arrives.
--- NOTE | 2020-10-07 14:33 | CM.DPC ---
DCP/continued: Reviewed chart. Patient scheduled to go to [facility] today. FINANCIAL SYSTEMS ANALYST called this AM, left vm. Received return call from [facility] indicating that they were unable to accept any patient's today. Per Сергей, current employee being tested for COVID. FINANCIAL SYSTEMS ANALYST placed call to patient's son BENEDICTO/Atif re: the above. Atif resides in and agreeable for FINANCIAL SYSTEMS ANALYST to attempt placement closer to . Asked AHMET/Tarsha to [facility] the [facility]: [facility], [facility], [facility], [facility]. Received return phone call from Latosha at [facility] and they report that they can accept. All clinical faxed and completed PASRR. LINSEY signed by son. Latosha aware that patient has been pleasantly confused at [facility] Asked Tom to coordinate cabulance transport via [employer] lift billed to [facility]. Tarsha arranged ride through [employer]. motor vehicle assembly supervisor scheduled between 2:30-2:45ish. Recieving facility aware that assistance will be needed when she arrives at [facility]. Son went over to [facility] and obtained pateint's belongings. In addition, son signed consent for medicals records for hospitalization be sent to him. No additional needs identified. P: [facility] today via cabulance. RN updated. ENRRIQUE Barreto
--- NOTE | 2020-10-07 15:05 | PC.NURSE ---
Pt hoyered into w/c and out to facility vehicle via [employer].
== END 2020-10-07 15:06 | DRG 690 ==
LOC: ED 17:52 → AC 18:05
PROVIDERS: Internal Medicine; Nurse Practitioner Family; Admitting Provider Internal Medicine; Emergency Provider Emergency Medicine; Family Provider Nurse Practitioner Family; PCP Nurse Practitioner Family; Visit Provider Internal Medicine
DX: N39.0 Urinary tract infection, site not specified (principal); Z16.12 Extended spectrum beta lactamase (ESBL) resistance; N17.9 Acute kidney failure, unspecified; Q61.3 Polycystic kidney, unspecified; L97.819 Non-pressure chronic ulcer of other part of right lower leg with unspecified severity; F01.51 Vascular dementia, unspecified severity, with behavioral disturbance; E11.22 Type 2 diabetes mellitus with diabetic chronic kidney disease; B96.1 Klebsiella pneumoniae [K. pneumoniae] as the cause of diseases classified elsewhere; I73.9 Peripheral vascular disease, unspecified; I25.10 Atherosclerotic heart disease of native coronary artery without angina pectoris; E78.5 Hyperlipidemia, unspecified; E86.0 Dehydration; E66.9 Obesity, unspecified; Z68.31 Body mass index [BMI] 31.0-31.9, adult; I12.9 Hypertensive chronic kidney disease with stage 1 through stage 4 chronic kidney disease, or unspecified chronic kidney disease; Z79.4 Long term (current) use of insulin; K59.09 Other constipation; D50.9 Iron deficiency anemia, unspecified; N18.30 Chronic kidney disease, stage 3 unspecified
CPT/HCPCS: 36415; 51701; 51798; 70450; 71045; 71250; 74176; 80048; 80053; 81001; 82550; 82962; 83036; 83605; 83735; 83880; 84100; 84145; 84443; 84484; 85025; 87040; 87070; 87086; 87205; 87635; 92526; 92610; 94762; 96361; 96365; 97161; 97166; 97530; 97535; 99285; G0378; J1644; J1956; J2185